=== PATIENT | female | born 1955 | race Caucasian/White ===

== ENCOUNTER → 2018-01-19 | Outpatient (CLI) | payer BC ==
[~2018-01-19] MED LIST: ALBU0.084; ALBU18; BENZ1CAP24 PO; DOXY-216 PO; ESCI20TA51 PO; FLUC200T35 PO; FLUT500M6; IPRASOL39 INH; LINE600T PO; LORA-654 PO; LOS50T PO; LOSA50TA6 PO; MON10T PO; MONT10TA34 PO; NIFE60TA59 PO; PANT40TA2 PO; PREDNISONE 5 MG TABLET PO; SACC250C PO; SERT-135 PO; TUDORZA PRESSAIR 400 MCG; VARE0.5P4; VARE0.5P4 PO
[2018-01-19 11:15] LABS: Basophils # (auto) 0.1 uL; Basophils % (auto) 0.5 % (0.0-2.0); Eosinophils # (auto) 0.5 uL; Eosinophils % (auto) 4.6 % (0.0-7.0); Hematocrit 40.7 % (36.0-46.0); Hemoglobin 13.4 g/dL (12.2-16.2); Lymphocytes # (auto) 2.8 uL; Mean Corpuscular Hemoglobin 28.9 pg (28.0-32.0); Mean Corpuscular Volume 87.5 fL (80.0-100.0); Monocytes # (auto) 0.8 uL; Monocytes % (auto) 7.4 % (0.0-12.0); Neutrophils # (auto) 6.4 uL; Neutrophils % (auto) 60.5 % (37.0-80.0); Platelet Count (auto) 334 10^3/uL (140-450); Red Blood Cells 4.65 10^6/uL (4.0-5.20); Red Cell Distribution Width 14.6 % (11.8-14.3); White Blood Cell 10.5 10^3/uL (4.4-10.8)
[2018-01-19 11:38] LABS: Free T4 (Free Thyroxine) 1.25 ng/dL (0.89-1.76); T3 Total 1.03 ng/mL (0.60-1.81)
[2018-01-19 12:39] LABS: Albumin 4.1 g/dL (3.4-5.0); BUN/Creatinine Ratio 18.8; Bilirubin, Total 0.2 mg/dL (0.2-1.0); Calcium 9.3 mg/dL (8.5-10.1); Potassium 4.1 mmol/L (3.5-5.1); Total Protein 7.2 g/dL (6.4-8.2)
== END | disposition home or self-care (01) ==
LOC: LAB 10:41
PROVIDERS: ATTEND Physician Assistant
DX: I10 Essential (primary) hypertension (principal); J44.9 Chronic obstructive pulmonary disease, unspecified; R94.6 Abnormal results of thyroid function studies; Z83.79 Family history of other diseases of the digestive system
CPT/HCPCS: 36415; 80053; 80061; 82270; 84439; 84443; 84480; 85025

== ENCOUNTER 2018-02-02 05:17 | Inpatient (IN) | payer BC ==
[~2018-02-02] VITALS: Ht 165.1 cm; Wt 59.4 kg
[2018-02-02] VITALS (55 sets, daily range): BP systolic 77–160; BP diastolic 39–77
[~2018-02-02 05:17] MED LIST changes: -BENZ1CAP24 PO; -ESCI20TA51 PO; -FLUC200T35 PO; -LINE600T PO; -LORA-654 PO; -LOSA50TA6 PO; -MONT10TA34 PO; -PANT40TA2 PO; -SACC250C PO; -SERT-135 PO
[2018-02-02] MEDS ORDERED: ETOMIDATE (2MG/ML) 20ML VIAL IV ONE ×2 (05:31→05:45)
[2018-02-02] MEDS ORDERED: SUCCINYLCHOLINE CHLORIDE 20 MG/ML 10ML VIAL IV ONE ×2 (05:31→05:45)
[2018-02-02] MEDS ORDERED: MIDAZOLAM HCL 5 MG/ML-1ML VIAL ONE (05:33)
[2018-02-02] MEDS ORDERED: PROPOFOL 100 ML IV ONE (05:45)
[2018-02-02] MEDS ORDERED: MIDAZOLAM HCL 5 MG/ML-1ML VIAL IV ONE (05:45)
[2018-02-02] MEDS ORDERED: IPRATROPIUM BROM 0.5 MG/2.5ML INH SOL HHN ONE (06:00)
[2018-02-02] MEDS ORDERED: methylPREDNISolone SOD SUCC 125 MG/2 ML VL IV ONE (06:00)
[2018-02-02] MEDS ORDERED: ALBUTEROL SULF 2.5 MG/0.5ML(0.5%) NEB SOLN HHN ONE (06:00)
[2018-02-02 06:21] LABS: Basophils # (auto) 0.1 uL; Basophils % (auto) 0.8 % (0.0-2.0); Eosinophils # (auto) 0 uL; Eosinophils % (auto) 0.4 % (0.0-7.0); Hematocrit 37.6 % (36.0-46.0); Hemoglobin 12.5 g/dL (12.2-16.2); Lymphocytes # (auto) 1.6 uL; Lymphocytes % (auto) 16.5 % (10.0-50.0); Mean Corpuscular Hemoglobin 29.2 pg (28.0-32.0); Mean Corpuscular Hgb Conc. 33.2 g/dL (32.0-36.0); Mean Corpuscular Volume 87.9 fL (80.0-100.0); Monocytes # (auto) 0.9 uL; Monocytes % (auto) 8.9 % (0.0-12.0); Neutrophils % (auto) 73.4 % (37.0-80.0); Nucleated Red Blood Cells % 0.1 %; Platelet Count (auto) 223 10^3/uL (140-450); Red Blood Cells 4.28 10^6/uL (4.0-5.20); Red Cell Distribution Width 15.3 % (11.8-14.3); White Blood Cell 9.5 10^3/uL (4.4-10.8)
[2018-02-02 06:31] LABS: Albumin 3.6 g/dL (3.4-5.0); Anion Gap 7 (5-15); Blood Urea Nitrogen 15 mg/dL (7-18); Carbon Dioxide 30 mmol/L (21-32); Chloride 100 mmol/L (98-107); Glucose 130 mg/dL (74-106); Magnesium 2.2 mg/dL (1.6-2.6); Potassium 4.2 mmol/L (3.5-5.1); Sodium 137 mmol/L (136-145)
[2018-02-02 06:33] LABS: Alanine Aminotransferase 32 U/L (13-56); Aspartate Aminotransferase 36 U/L (15-37); BUN/Creatinine Ratio 25.9; GFR African American 136 mL/min; GFR Non-African American 112 mL/min
[2018-02-02 06:38] LABS: Alkaline Phosphatase 21 U/L (45-117); Bilirubin, Total 0.2 mg/dL (0.2-1.0)
[2018-02-02] MEDS: MIDAZOLAM DRIP 50 mg/50mL 50 ML IV SCH ×3 (06:40→20:35)
[2018-02-02] MEDS ORDERED: MIDAZOLAM DRIP 50 mg/50mL 50 ML IV ONE (06:45)
[2018-02-02] MEDS: PROPOFOL 100 ML IV SCH ×2 (07:11→12:23)
[2018-02-02] MEDS ORDERED: ONDANSETRON HCL 4 MG/2 ML VIAL IV PRN (07:15)
[2018-02-02] MEDS ORDERED: ACETAMINOPHEN 500 MG TAB PO PRN (07:15)
[2018-02-02 07:23] LABS: Urine WBC None Seen /hpf (0 - 5)
[2018-02-02 07:45] LABS: Urine Bacteria FEW /hpf (None Seen); Urine Blood 2+ /uL (Negative); Urine Hyaline Cast MANY /lpf (0 - 2); Urine Mucus FEW (None Seen); Urine Specific Gravity 1.022 (1.001-1.035)
[2018-02-02] MEDS ORDERED: SODIUM BICARBONATE 8.4 % INJ 50ML VIAL IV ONE ×2 (07:45)
[2018-02-02] MEDS: ALBUTEROL SULF 2.5 MG/0.5ML(0.5%) NEB SOLN NEB SCH ×4 (09:30→22:20)
[2018-02-02] MEDS: IPRATROPIUM BROM 0.5 MG/2.5ML INH SOL NEB SCH ×4 (09:30→22:20)
[2018-02-02] MEDS ORDERED: ENOXAPARIN SOD 30 MG/0.3 ML SYRINGE SC SCH (10:00)
[2018-02-02] MEDS ORDERED: ENOXAPARIN SOD 40 MG/0.4 ML SYRINGE SC SCH (10:00)
[2018-02-02] MEDS: PANTOPRAZOLE 40 MG/10 ML VIAL IV SCH (10:28)
[2018-02-02] MEDS ORDERED: fentaNYL Drip 2500mCg/250mlNS 250 ML IV ONE (10:55)
[2018-02-02] MEDS: fentaNYL Drip 2500mCg/250mlNS 250 ML IV SCH (11:00)
[2018-02-02] MEDS ORDERED: SERT-135 PO (11:31)
[2018-02-02] MEDS ORDERED: BENZ1CAP24 PO (11:31)
[2018-02-02] MEDS ORDERED: ESCI20TA51 PO (11:31)
[2018-02-02] MEDS ORDERED: MONT10TA34 PO (11:32)
[2018-02-02] MEDS ORDERED: LOSA50TA6 PO (11:34)
[2018-02-02] MEDS ORDERED: NIFE60TA59 PO (11:34)
[2018-02-02] MEDS ORDERED: NOREPINEPHRINE 8 MG/250ML KIT 250 ML IV ONE (13:35)
[2018-02-02] MEDS: methylPREDNISolone SOD SUCC 40 MG/ML VL IV SCH ×2 (15:08→22:30)
[2018-02-02] MEDS: NOREPINEPHRINE 8 MG/250ML KIT 250 ML IV SCH (16:33)
[2018-02-02] MEDS: DOXYCYCLINE 100MG/250ML 250 ML IV SCH (18:42)
[2018-02-02 20:31] LABS: Calcium 7.7 mg/dL (8.5-10.1)
[2018-02-02] MEDS: SODIUM CHLORIDE 0.9% 1,000 ML IV SCH (21:24)
[2018-02-02] MEDS: BUDESONIDE (INHALATION) 0.5 MG/2 ML NEB NEB SCH (22:20)
[2018-02-03] VITALS (105 sets, daily range): BP systolic 77–151; BP diastolic 32–75
[2018-02-03] MEDS: MIDAZOLAM DRIP 50 mg/50mL 50 ML IV SCH ×4 (00:39→20:50)
[2018-02-03] MEDS: Nutren Pulmonary 1 Liter GT SCH (02:13)
[2018-02-03] MEDS: ALBUTEROL SULF 2.5 MG/0.5ML(0.5%) NEB SOLN NEB SCH ×6 (02:42→22:05)
[2018-02-03] MEDS: IPRATROPIUM BROM 0.5 MG/2.5ML INH SOL NEB SCH ×6 (02:43→22:05)
[2018-02-03 04:19] LABS: Basophils # (auto) 0 uL; Basophils % (auto) 0.1 % (0.0-2.0); Eosinophils # (auto) 0 uL; Hematocrit 34.4 % (36.0-46.0); Hemoglobin 11.4 g/dL (12.2-16.2); Lymphocytes # (auto) 0.7 uL; Lymphocytes % (auto) 8.7 % (10.0-50.0); Mean Corpuscular Hemoglobin 28.9 pg (28.0-32.0); Mean Corpuscular Hgb Conc. 33.3 g/dL (32.0-36.0); Mean Corpuscular Volume 86.8 fL (80.0-100.0); Monocytes # (auto) 0.5 uL; Monocytes % (auto) 5.9 % (0.0-12.0); Neutrophils # (auto) 7.1 uL; Neutrophils % (auto) 85.3 % (37.0-80.0); Platelet Count (auto) 199 10^3/uL (140-450); Red Blood Cells 3.96 10^6/uL (4.0-5.20); Red Cell Distribution Width 15.2 % (11.8-14.3); White Blood Cell 8.3 10^3/uL (4.4-10.8)
[2018-02-03 04:35] LABS: BUN/Creatinine Ratio 29.1; Magnesium 2.4 mg/dL (1.6-2.6); Potassium 3.9 mmol/L (3.5-5.1)
[2018-02-03] MEDS: PROPOFOL 100 ML IV SCH ×3 (05:04→23:36)
[2018-02-03] MEDS: methylPREDNISolone SOD SUCC 40 MG/ML VL IV SCH ×3 (06:09→18:13)
[2018-02-03] MEDS: fentaNYL Drip 2500mCg/250mlNS 250 ML IV SCH ×2 (06:30→18:20)
[2018-02-03] MEDS: DOXYCYCLINE 100MG/250ML 250 ML IV SCH ×2 (06:30→18:13)
[2018-02-03] MEDS: PANTOPRAZOLE 40 MG/10 ML VIAL IV SCH (09:41)
[2018-02-03] MEDS ORDERED: methylPREDNISolone SOD SUCC 125 MG/2 ML VL IV ONE (10:00)
[2018-02-03] MEDS: BUDESONIDE (INHALATION) 0.5 MG/2 ML NEB NEB SCH ×2 (10:15→22:05)
[2018-02-03 10:38] LABS: Hemoglobin 11.6 g/dL (12.2-16.2)
[2018-02-03] MEDS ORDERED: ACETYLCYSTEINE 10 %(100MG/ML) SOL 4ML NEB ONE ×2 (10:55→12:00)
[2018-02-03] MEDS ORDERED: MAGNESIUM SULFATE 1GM/100ML 100 ML IV ONE ×2 (11:24→11:30)
[2018-02-03] MEDS ORDERED: ALBUTEROL SULF 2.5 MG/0.5ML(0.5%) NEB SOLN ONE (11:25)
[2018-02-03] MEDS ORDERED: ALBUTEROL SULF 2.5 MG/0.5ML(0.5%) NEB SOLN NEB ONE (11:30)
[2018-02-03] MEDS: NOREPINEPHRINE 8 MG/250ML KIT 250 ML IV SCH (13:41)
[2018-02-03 14:43] LABS: Hematocrit 35.8 % (36.0-46.0); Hemoglobin 11.6 g/dL (12.2-16.2)
[2018-02-03] MEDS: SODIUM CHLORIDE 0.9% 1,000 ML IV SCH (18:12)
[2018-02-04] VITALS (105 sets, daily range): BP systolic 88–131; BP diastolic 39–68
[2018-02-04] MEDS: methylPREDNISolone SOD SUCC 40 MG/ML VL IV SCH ×4 (00:08→18:40)
[2018-02-04] MEDS: MIDAZOLAM DRIP 50 mg/50mL 50 ML IV SCH ×6 (01:13→20:24)
[2018-02-04] MEDS: IPRATROPIUM BROM 0.5 MG/2.5ML INH SOL NEB SCH ×6 (02:14→21:55)
[2018-02-04] MEDS: ALBUTEROL SULF 2.5 MG/0.5ML(0.5%) NEB SOLN NEB SCH ×6 (02:14→21:55)
[2018-02-04] MEDS: Nutren Pulmonary 1 Liter GT SCH (04:05)
[2018-02-04 04:25] LABS: Basophils # (auto) 0 uL; Basophils % (auto) 0.1 % (0.0-2.0); Eosinophils # (auto) 0 uL; Hemoglobin 10.6 g/dL (12.2-16.2); Lymphocytes # (auto) 0.6 uL; Lymphocytes % (auto) 5.7 % (10.0-50.0); Mean Corpuscular Hemoglobin 28.9 pg (28.0-32.0); Mean Corpuscular Volume 87.3 fL (80.0-100.0); Monocytes # (auto) 0.6 uL; Monocytes % (auto) 5.1 % (0.0-12.0); Neutrophils # (auto) 10.1 uL; Neutrophils % (auto) 89.1 % (37.0-80.0); Platelet Count (auto) 188 10^3/uL (140-450); Red Blood Cells 3.66 10^6/uL (4.0-5.20); Red Cell Distribution Width 15.5 % (11.8-14.3); White Blood Cell 11.4 10^3/uL (4.4-10.8)
[2018-02-04 04:38] LABS: BUN/Creatinine Ratio 26.9; Calcium 8.1 mg/dL (8.5-10.1)
[2018-02-04] MEDS: PROPOFOL 100 ML IV SCH ×3 (04:54→16:24)
[2018-02-04] MEDS: fentaNYL Drip 2500mCg/250mlNS 250 ML IV SCH ×2 (05:44→17:43)
[2018-02-04] MEDS: BUDESONIDE (INHALATION) 0.5 MG/2 ML NEB NEB SCH ×2 (06:12→21:55)
[2018-02-04] MEDS ORDERED: ALBUTEROL SULF 2.5 MG/0.5ML(0.5%) NEB SOLN NEB ONE ×2 (06:30→15:45)
[2018-02-04] MEDS: DOXYCYCLINE 100MG/250ML 250 ML IV SCH ×2 (07:02→19:23)
[2018-02-04] MEDS: PANTOPRAZOLE 40 MG/10 ML VIAL IV SCH (09:49)
[2018-02-04] MEDS ORDERED: DEXTROSE (50%) 50ML SYRG IV PRN (10:30)
[2018-02-04] MEDS: SODIUM CHLORIDE 0.9% 1,000 ML IV SCH ×2 (11:45→18:00)
[2018-02-04] MEDS: InsuLIN REG 1unit/0.01ml Soln (100units/ml) SC SCH ×2 (11:49→18:00)
[2018-02-04] MEDS: ACCU-CHEK COMFORT CURVE STRIP VI SCH ×2 (11:49→18:00)
[2018-02-04] MEDS: NOREPINEPHRINE 8 MG/250ML KIT 250 ML IV SCH (13:18)
[2018-02-04] MEDS ORDERED: ATRACURIUM BESYLATE 1,000 MG in D5W 5% 150 ML IV SCH (16:45)
[2018-02-05] VITALS (104 sets, daily range): BP systolic 90–148; BP diastolic 43–78
[2018-02-05] MEDS: methylPREDNISolone SOD SUCC 40 MG/ML VL IV SCH ×4 (00:24→22:10)
[2018-02-05] MEDS: ACCU-CHEK COMFORT CURVE STRIP VI SCH ×4 (00:24→17:39)
[2018-02-05] MEDS: InsuLIN REG 1unit/0.01ml Soln (100units/ml) SC SCH ×4 (00:24→17:39)
[2018-02-05] MEDS: MIDAZOLAM DRIP 50 mg/50mL 50 ML IV SCH ×4 (01:22→18:39)
[2018-02-05] MEDS: ALBUTEROL SULF 2.5 MG/0.5ML(0.5%) NEB SOLN NEB SCH ×6 (02:04→22:08)
[2018-02-05] MEDS: IPRATROPIUM BROM 0.5 MG/2.5ML INH SOL NEB SCH ×6 (02:04→22:08)
[2018-02-05 04:08] LABS: Basophils # (auto) 0 uL; Basophils % (auto) 0.1 % (0.0-2.0); Eosinophils # (auto) 0 uL; Hematocrit 31.3 % (36.0-46.0); Hemoglobin 10.3 g/dL (12.2-16.2); Lymphocytes # (auto) 0.6 uL; Lymphocytes % (auto) 3.5 % (10.0-50.0); Mean Corpuscular Hemoglobin 28.8 pg (28.0-32.0); Mean Corpuscular Volume 87.2 fL (80.0-100.0); Monocytes # (auto) 0.9 uL; Monocytes % (auto) 5.5 % (0.0-12.0); Neutrophils # (auto) 15.6 uL; Neutrophils % (auto) 90.9 % (37.0-80.0); Platelet Count (auto) 186 10^3/uL (140-450); Red Blood Cells 3.59 10^6/uL (4.0-5.20); Red Cell Distribution Width 15.6 % (11.8-14.3); White Blood Cell 17.1 10^3/uL (4.4-10.8)
[2018-02-05 04:24] LABS: Calcium 8.2 mg/dL (8.5-10.1); Chloride 108 mmol/L (98-107); Potassium 4.2 mmol/L (3.5-5.1); Sodium 144 mmol/L (136-145)
[2018-02-05 04:28] LABS: Anion Gap 6 (5-15); Blood Urea Nitrogen 17 mg/dL (7-18); Carbon Dioxide 30 mmol/L (21-32); GFR African American 161 mL/min; GFR Non-African American 133 mL/min; Glucose 142 mg/dL (74-106)
[2018-02-05] MEDS: DOXYCYCLINE 100MG/250ML 250 ML IV SCH ×2 (06:35→18:38)
[2018-02-05 07:48] LABS: % Iron Saturation 18.1 % (15-50)
[2018-02-05] MEDS: PROPOFOL 100 ML IV SCH ×4 (07:49→22:04)
[2018-02-05] MEDS ORDERED: BUDESONIDE (INHALATION) 0.5 MG/2 ML NEB ONE (09:26)
[2018-02-05] MEDS: BUDESONIDE (INHALATION) 0.5 MG/2 ML NEB NEB SCH ×2 (09:39→22:08)
[2018-02-05] MEDS: PANTOPRAZOLE 40 MG/10 ML VIAL IV SCH (10:15)
[2018-02-05] MEDS ORDERED: ALBUTEROL SULF 2.5 MG/0.5ML(0.5%) NEB SOLN NEB ONE (16:30)
[2018-02-05] MEDS: ATRACURIUM BESYLATE 1,000 MG in D5W 5% 150 ML IV PRN (16:38)
[2018-02-05] MEDS ORDERED: methylPREDNISolone SOD SUCC 125 MG/2 ML VL ONE (17:04)
[2018-02-05] MEDS: SODIUM CHLORIDE 0.9% 1,000 ML IV SCH (17:09)
[2018-02-05] MEDS ORDERED: methylPREDNISolone SOD SUCC 125 MG/2 ML VL IV ONE (17:15)
[2018-02-05] MEDS: NOREPINEPHRINE 8 MG/250ML KIT 250 ML IV SCH (22:09)
[2018-02-06] VITALS (103 sets, daily range): BP systolic 92–179; BP diastolic 59–87
[2018-02-06] MEDS: ACCU-CHEK COMFORT CURVE STRIP VI SCH ×4 (00:01→17:49)
[2018-02-06] MEDS: MIDAZOLAM DRIP 50 mg/50mL 50 ML IV SCH ×4 (00:01→20:22)
[2018-02-06] MEDS: InsuLIN REG 1unit/0.01ml Soln (100units/ml) SC SCH ×4 (00:02→17:49)
[2018-02-06] MEDS: IPRATROPIUM BROM 0.5 MG/2.5ML INH SOL NEB SCH ×6 (02:49→22:13)
[2018-02-06] MEDS: ALBUTEROL SULF 2.5 MG/0.5ML(0.5%) NEB SOLN NEB SCH ×6 (02:49→22:13)
[2018-02-06] MEDS: PROPOFOL 100 ML IV SCH ×3 (03:06→22:17)
[2018-02-06 03:35] LABS: Basophils # (auto) 0.1 uL; Basophils % (auto) 0.3 % (0.0-2.0); Eosinophils # (auto) 0 uL; Hematocrit 32.4 % (36.0-46.0); Hemoglobin 10.4 g/dL (12.2-16.2); Lymphocytes # (auto) 1.4 uL; Mean Corpuscular Hemoglobin 28.5 pg (28.0-32.0); Mean Corpuscular Hgb Conc. 32.2 g/dL (32.0-36.0); Mean Corpuscular Volume 88.5 fL (80.0-100.0); Monocytes # (auto) 0.8 uL; Monocytes % (auto) 4.6 % (0.0-12.0); Neutrophils # (auto) 14.7 uL; Neutrophils % (auto) 87.1 % (37.0-80.0); Nucleated Red Blood Cells % 0.1 %; Platelet Count (auto) 169 10^3/uL (140-450); Red Blood Cells 3.66 10^6/uL (4.0-5.20); Red Cell Distribution Width 16.1 % (11.8-14.3); White Blood Cell 16.9 10^3/uL (4.4-10.8)
[2018-02-06 03:59] LABS: BUN/Creatinine Ratio 57.4; Calcium 8.7 mg/dL (8.5-10.1); Magnesium 2.7 mg/dL (1.6-2.6)
[2018-02-06] MEDS: methylPREDNISolone SOD SUCC 40 MG/ML VL IV SCH ×2 (06:13→17:49)
[2018-02-06] MEDS: DOXYCYCLINE 100MG/250ML 250 ML IV SCH (07:25)
[2018-02-06] MEDS ORDERED: PIPERACILLIN-TAZOB 3.375GM 100 ML IV SCH (10:00)
[2018-02-06] MEDS: BUDESONIDE (INHALATION) 0.5 MG/2 ML NEB NEB SCH ×2 (10:02→22:13)
[2018-02-06] MEDS: PANTOPRAZOLE 40 MG/10 ML VIAL IV SCH (10:29)
[2018-02-06] MEDS: fentaNYL Drip 2500mCg/250mlNS 250 ML IV SCH (11:00)
[2018-02-06] MEDS ORDERED: Nutren Pulmonary 1 Liter GT SCH (11:30)
[2018-02-06] MEDS: SODIUM CHLORIDE 0.9% 1,000 ML IV SCH (23:45)
[2018-02-07] VITALS (105 sets, daily range): BP systolic 84–198; BP diastolic 49–91
[2018-02-07] MEDS: ACCU-CHEK COMFORT CURVE STRIP VI SCH ×4 (00:25→18:02)
[2018-02-07] MEDS: methylPREDNISolone SOD SUCC 40 MG/ML VL IV SCH ×4 (00:25→18:00)
[2018-02-07] MEDS: MIDAZOLAM DRIP 50 mg/50mL 50 ML IV SCH ×6 (00:46→21:44)
[2018-02-07] MEDS: PROPOFOL 100 ML IV SCH ×4 (01:05→15:14)
[2018-02-07] MEDS: ALBUTEROL SULF 2.5 MG/0.5ML(0.5%) NEB SOLN NEB SCH ×6 (02:10→22:10)
[2018-02-07] MEDS: IPRATROPIUM BROM 0.5 MG/2.5ML INH SOL NEB SCH ×6 (02:10→22:10)
[2018-02-07 03:40] LABS: Hematocrit 33.2 % (36.0-46.0); Hemoglobin 10.9 g/dL (12.2-16.2); Mean Corpuscular Hemoglobin 28.5 pg (28.0-32.0); Mean Corpuscular Hgb Conc. 32.8 g/dL (32.0-36.0); Mean Corpuscular Volume 86.9 fL (80.0-100.0); Platelet Count (auto) 196 10^3/uL (140-450); Red Blood Cells 3.82 10^6/uL (4.0-5.20); Red Cell Distribution Width 15.7 % (11.8-14.3); White Blood Cell 12.1 10^3/uL (4.4-10.8)
[2018-02-07 03:43] LABS: Basophils % (manual) 0 (0.0-2.0); Blast Cells 0; Eosinophils % (manual) 0 (0-7); Metamyelocytes % 0; Myelocytes % 0; Promyelocytes % 0; Reactive Lymphocytes 0
[2018-02-07 04:31] LABS: Band Neutrophils % (manual) 2; Lymphocytes % (manual) 7 (10.0-50.0); Monocytes % (manual) 5 (0-12)
[2018-02-07] MEDS: InsuLIN REG 1unit/0.01ml Soln (100units/ml) SC SCH ×4 (06:00→18:30)
[2018-02-07] MEDS ORDERED: ceFAZolin 1GM/50ML 50 ML IV ONE (07:49)
[2018-02-07 08:26] LABS: Calcium 8.2 mg/dL (8.5-10.1); Potassium 4.7 mmol/L (3.5-5.1)
[2018-02-07] MEDS: ATRACURIUM BESYLATE 1,000 MG in D5W 5% 150 ML IV PRN (09:15)
[2018-02-07] MEDS: PANTOPRAZOLE 40 MG/10 ML VIAL IV SCH (10:00)
[2018-02-07] MEDS: ENOXAPARIN SOD 40 MG/0.4 ML SYRINGE SC SCH (10:00)
[2018-02-07] MEDS: BUDESONIDE (INHALATION) 0.5 MG/2 ML NEB NEB SCH ×2 (10:11→22:10)
[2018-02-07] MEDS ORDERED: NIFEdipine ER 30 MG TAB PO ONE (12:30)
[2018-02-07] MEDS: SODIUM CHLORIDE 0.9% 1,000 ML IV SCH (17:25)
[2018-02-07] MEDS: fentaNYL Drip 2500mCg/250mlNS 250 ML IV SCH (17:26)
[2018-02-08] VITALS (104 sets, daily range): BP systolic 89–185; BP diastolic 49–96
[2018-02-08] MEDS: methylPREDNISolone SOD SUCC 40 MG/ML VL IV SCH ×5 (00:08→23:50)
[2018-02-08] MEDS: ACCU-CHEK COMFORT CURVE STRIP VI SCH ×5 (00:13→23:51)
[2018-02-08] MEDS: PROPOFOL 100 ML IV SCH ×4 (01:54→20:01)
[2018-02-08] MEDS: MIDAZOLAM DRIP 50 mg/50mL 50 ML IV SCH ×5 (01:54→20:01)
[2018-02-08] MEDS: ALBUTEROL SULF 2.5 MG/0.5ML(0.5%) NEB SOLN NEB SCH ×6 (02:22→22:10)
[2018-02-08] MEDS: IPRATROPIUM BROM 0.5 MG/2.5ML INH SOL NEB SCH ×6 (02:22→22:10)
[2018-02-08 03:47] LABS: Hematocrit 33.2 % (36.0-46.0); Hemoglobin 11.2 g/dL (12.2-16.2); Mean Corpuscular Hemoglobin 29.1 pg (28.0-32.0); Mean Corpuscular Hgb Conc. 33.6 g/dL (32.0-36.0); Mean Corpuscular Volume 86.4 fL (80.0-100.0); Platelet Count (auto) 203 10^3/uL (140-450); Red Blood Cells 3.84 10^6/uL (4.0-5.20); Red Cell Distribution Width 15.8 % (11.8-14.3)
[2018-02-08 03:49] LABS: Basophils % (manual) 0 (0.0-2.0); Blast Cells 0; Eosinophils % (manual) 0 (0-7); Metamyelocytes % 0; Myelocytes % 0; Promyelocytes % 0; Reactive Lymphocytes 0
[2018-02-08 04:54] LABS: Band Neutrophils % (manual) 2; Lymphocytes % (manual) 8 (10.0-50.0); Monocytes % (manual) 4 (0-12)
[2018-02-08] MEDS: InsuLIN REG 1unit/0.01ml Soln (100units/ml) SC SCH ×5 (06:00→23:51)
[2018-02-08] MEDS ORDERED: NIFEdipine ER 30 MG TAB PO SCH (10:00)
[2018-02-08] MEDS: BUDESONIDE (INHALATION) 0.5 MG/2 ML NEB NEB SCH ×2 (10:20→22:10)
[2018-02-08] MEDS: PANTOPRAZOLE 40 MG/10 ML VIAL IV SCH (10:50)
[2018-02-08] MEDS: ENOXAPARIN SOD 40 MG/0.4 ML SYRINGE SC SCH (10:51)
[2018-02-08] MEDS: fentaNYL Drip 2500mCg/250mlNS 250 ML IV SCH (10:56)
[2018-02-08 12:41] LABS: INR 1.05 (0.9-1.15); Prothrombin Time 11.2 sec (9.27-12.13)
[2018-02-08] MEDS ORDERED: LIDOCAINE 1% (LOCAL ANESTH.) PF 5ml SDV ID ONE (14:30)
[2018-02-08] MEDS: SODIUM CHLORIDE 0.9% 1,000 ML IV SCH (17:28)
[2018-02-08] MEDS: SODIUM CHLOR 0.9% PF (SALINE LOCK) 10ML VIAL/SYR IV SCH (22:12)
[2018-02-09] VITALS (104 sets, daily range): BP systolic 113–192; BP diastolic 53–87
[2018-02-09] MEDS: fentaNYL Drip 2500mCg/250mlNS 250 ML IV SCH (01:16)
[2018-02-09] MEDS: MIDAZOLAM DRIP 50 mg/50mL 50 ML IV SCH ×3 (01:42→19:54)
[2018-02-09] MEDS: ALBUTEROL SULF 2.5 MG/0.5ML(0.5%) NEB SOLN NEB SCH ×6 (02:29→22:34)
[2018-02-09] MEDS: IPRATROPIUM BROM 0.5 MG/2.5ML INH SOL NEB SCH ×6 (02:29→22:34)
[2018-02-09 03:42] LABS: Hematocrit 32.7 % (36.0-46.0); Hemoglobin 10.8 g/dL (12.2-16.2); Mean Corpuscular Hemoglobin 28.5 pg (28.0-32.0); Mean Corpuscular Volume 86.2 fL (80.0-100.0); Platelet Count (auto) 197 10^3/uL (140-450); Red Blood Cells 3.79 10^6/uL (4.0-5.20); Red Cell Distribution Width 15.8 % (11.8-14.3); White Blood Cell 13.5 10^3/uL (4.4-10.8)
[2018-02-09 03:46] LABS: Band Neutrophils % (manual) 0; Basophils % (manual) 0 (0.0-2.0); Blast Cells 0; Eosinophils % (manual) 0 (0-7); Metamyelocytes % 0; Myelocytes % 0; Promyelocytes % 0; Reactive Lymphocytes 0
[2018-02-09 03:59] LABS: Potassium 4.5 mmol/L (3.5-5.1)
[2018-02-09 04:03] LABS: Magnesium 2.6 mg/dL (1.6-2.6)
[2018-02-09 04:18] LABS: Lymphocytes % (manual) 5 (10.0-50.0); Monocytes % (manual) 4 (0-12)
[2018-02-09] MEDS: InsuLIN REG 1unit/0.01ml Soln (100units/ml) SC SCH ×3 (06:00→18:00)
[2018-02-09] MEDS: BUDESONIDE (INHALATION) 0.5 MG/2 ML NEB NEB SCH ×2 (06:12→22:34)
[2018-02-09] MEDS: methylPREDNISolone SOD SUCC 40 MG/ML VL IV SCH ×3 (06:23→19:57)
[2018-02-09] MEDS: ACCU-CHEK COMFORT CURVE STRIP VI SCH ×3 (06:23→18:00)
[2018-02-09] MEDS: NIFEdipine ER 30 MG TAB PO SCH ×2 (10:00→11:18)
[2018-02-09] MEDS: PANTOPRAZOLE 40 MG/10 ML VIAL IV SCH (11:17)
[2018-02-09] MEDS: ENOXAPARIN SOD 40 MG/0.4 ML SYRINGE SC SCH (11:17)
[2018-02-09] MEDS: SODIUM CHLOR 0.9% PF (SALINE LOCK) 10ML VIAL/SYR IV SCH ×2 (11:19→22:01)
[2018-02-09] MEDS: PROPOFOL 100 ML IV SCH ×2 (11:30→11:50)
[2018-02-09] MEDS: SODIUM CHLORIDE 0.9% 1,000 ML IV SCH (11:45)
[2018-02-09] MEDS ORDERED: hydrALAZINE HCL 20 MG/ML VL IV PRN (23:00)
[2018-02-09] MEDS ORDERED: NIFEdipine 10 MG CAP ONE (23:37)
[2018-02-09] MEDS: NIFEdipine 10 MG CAP PO SCH (23:48)
[2018-02-10] VITALS (105 sets, daily range): BP systolic 94–191; BP diastolic 53–109
[2018-02-10] MEDS: IPRATROPIUM BROM 0.5 MG/2.5ML INH SOL NEB SCH ×5 (02:40→22:17)
[2018-02-10] MEDS: ALBUTEROL SULF 2.5 MG/0.5ML(0.5%) NEB SOLN NEB SCH ×5 (02:40→22:17)
[2018-02-10 03:57] LABS: Hematocrit 33.3 % (36.0-46.0); Hemoglobin 11.2 g/dL (12.2-16.2); Mean Corpuscular Hemoglobin 28.8 pg (28.0-32.0); Mean Corpuscular Hgb Conc. 33.5 g/dL (32.0-36.0); Platelet Count (auto) 222 10^3/uL (140-450); Red Blood Cells 3.88 10^6/uL (4.0-5.20); Red Cell Distribution Width 15.7 % (11.8-14.3); White Blood Cell 15.2 10^3/uL (4.4-10.8)
[2018-02-10 04:09] LABS: Basophils % (manual) 0 (0.0-2.0); Blast Cells 0; Eosinophils % (manual) 0 (0-7); Promyelocytes % 0; Reactive Lymphocytes 0
[2018-02-10 04:16] LABS: Potassium 4.1 mmol/L (3.5-5.1)
[2018-02-10 04:21] LABS: Albumin 2.7 g/dL (3.4-5.0); BUN/Creatinine Ratio 70.7; Calcium 7.8 mg/dL (8.5-10.1)
[2018-02-10] MEDS: PROPOFOL 100 ML IV SCH ×3 (04:22→18:52)
[2018-02-10] MEDS: MIDAZOLAM DRIP 50 mg/50mL 50 ML IV SCH ×3 (04:22→22:43)
[2018-02-10 04:24] LABS: Total Protein 5.4 g/dL (6.4-8.2)
[2018-02-10 05:27] LABS: Band Neutrophils % (manual) 1; Lymphocytes % (manual) 4 (10.0-50.0); Metamyelocytes % 1; Monocytes % (manual) 4 (0-12); Myelocytes % 2
[2018-02-10] MEDS: BUDESONIDE (INHALATION) 0.5 MG/2 ML NEB NEB SCH ×2 (05:51→22:17)
[2018-02-10] MEDS: InsuLIN REG 1unit/0.01ml Soln (100units/ml) SC SCH ×4 (06:00→18:00)
[2018-02-10] MEDS: methylPREDNISolone SOD SUCC 40 MG/ML VL IV SCH ×4 (06:12→18:00)
[2018-02-10] MEDS: ACCU-CHEK COMFORT CURVE STRIP VI SCH ×4 (06:12→18:00)
[2018-02-10] MEDS: NIFEdipine 10 MG CAP PO SCH ×3 (06:35→22:00)
[2018-02-10] MEDS: fentaNYL Drip 2500mCg/250mlNS 250 ML IV SCH (09:48)
[2018-02-10] MEDS: ENOXAPARIN SOD 40 MG/0.4 ML SYRINGE SC SCH (10:33)
[2018-02-10] MEDS: SODIUM CHLOR 0.9% PF (SALINE LOCK) 10ML VIAL/SYR IV SCH ×2 (10:34→22:00)
[2018-02-10] MEDS: PANTOPRAZOLE 40 MG/10 ML VIAL IV SCH (10:34)
[2018-02-10] MEDS ORDERED: ACETAMINOPHEN 650 mg PER 20 mL UD ONE (10:40)
[2018-02-10] MEDS: SODIUM CHLORIDE 0.9% 1,000 ML IV SCH (12:00)
[2018-02-10] MEDS: PIPERACILLIN-TAZOB 3.375GM 100 ML IV SCH ×2 (12:52→18:51)
[2018-02-10] MEDS: VANCOMYCIN 1GM/250ML 250 ML IV SCH (16:30)
[2018-02-11] VITALS (103 sets, daily range): BP systolic 101–196; BP diastolic 61–98
[2018-02-11] MEDS: PROPOFOL 100 ML IV SCH (00:16)
[2018-02-11] MEDS: ALBUTEROL SULF 2.5 MG/0.5ML(0.5%) NEB SOLN NEB SCH ×6 (02:12→22:14)
[2018-02-11] MEDS: IPRATROPIUM BROM 0.5 MG/2.5ML INH SOL NEB SCH ×6 (02:12→22:15)
[2018-02-11] MEDS: VANCOMYCIN 1GM/250ML 250 ML IV SCH ×2 (03:00→15:23)
[2018-02-11] MEDS: SODIUM CHLORIDE 0.9% 1,000 ML IV SCH ×2 (03:45→23:45)
[2018-02-11 05:08] LABS: Hematocrit 33.7 % (36.0-46.0); Hemoglobin 11.2 g/dL (12.2-16.2); Mean Corpuscular Hemoglobin 28.5 pg (28.0-32.0); Mean Corpuscular Hgb Conc. 33.3 g/dL (32.0-36.0); Mean Corpuscular Volume 85.5 fL (80.0-100.0); Platelet Count (auto) 236 10^3/uL (140-450); Red Blood Cells 3.94 10^6/uL (4.0-5.20); Red Cell Distribution Width 15.7 % (11.8-14.3); White Blood Cell 18.5 10^3/uL (4.4-10.8)
[2018-02-11 05:10] LABS: Basophils % (manual) 0 (0.0-2.0); Blast Cells 0; Metamyelocytes % 0; Promyelocytes % 0; Reactive Lymphocytes 0
[2018-02-11 05:24] LABS: Albumin 2.7 g/dL (3.4-5.0); Bilirubin, Total 1.1 mg/dL (0.2-1.0); Calcium 7.8 mg/dL (8.5-10.1); Potassium 3.6 mmol/L (3.5-5.1); Total Protein 5.3 g/dL (6.4-8.2)
[2018-02-11] MEDS: methylPREDNISolone SOD SUCC 40 MG/ML VL IV SCH ×4 (06:00→18:00)
[2018-02-11] MEDS: PIPERACILLIN-TAZOB 3.375GM 100 ML IV SCH ×4 (06:00→18:00)
[2018-02-11] MEDS: NIFEdipine 10 MG CAP PO SCH ×3 (06:00→22:48)
[2018-02-11] MEDS: InsuLIN REG 1unit/0.01ml Soln (100units/ml) SC SCH ×4 (06:00→18:00)
[2018-02-11] MEDS: ACCU-CHEK COMFORT CURVE STRIP VI SCH ×4 (06:00→18:00)
[2018-02-11] MEDS ORDERED: PHENYLEPHRINE IV 250 ML IV ONE (06:02)
[2018-02-11] MEDS ORDERED: PHENYLEPHRINE HCL 10 MG/ML VL ONE (06:02)
[2018-02-11 06:47] LABS: Eosinophils % (manual) 2 (0-7); Lymphocytes % (manual) 2 (10.0-50.0); Monocytes % (manual) 2 (0-12); Myelocytes % 1
[2018-02-11] MEDS: METOPROLOL TARTRATE 1MG/1ML-5ML VIAL IV PRN (08:51)
[2018-02-11] MEDS: PANTOPRAZOLE 40 MG/10 ML VIAL IV SCH (10:00)
[2018-02-11] MEDS: ENOXAPARIN SOD 40 MG/0.4 ML SYRINGE SC SCH (10:00)
[2018-02-11] MEDS: SODIUM CHLOR 0.9% PF (SALINE LOCK) 10ML VIAL/SYR IV SCH ×2 (10:00→22:00)
[2018-02-11] MEDS: BUDESONIDE (INHALATION) 0.5 MG/2 ML NEB NEB SCH ×2 (10:22→22:15)
[2018-02-11] MEDS: ACETAMINOPHEN 650 mg PER 20 mL UD GT PRN (10:33)
[2018-02-11] MEDS: MIDAZOLAM DRIP 50 mg/50mL 50 ML IV SCH ×3 (10:34→21:00)
[2018-02-11] MEDS ORDERED: VITAMINS A & D (TOPICAL) OINT 5GM TOP ONE (10:45)
[2018-02-11] MEDS: fentaNYL Drip 2500mCg/250mlNS 250 ML IV SCH ×2 (11:00→15:18)
[2018-02-11] MEDS ORDERED: METOPROLOL TARTRATE 1MG/1ML-5ML VIAL IV ONE (15:12)
[2018-02-11] MEDS ORDERED: VANCOMYCIN PER PHARMACY 0 MG IV SCH (18:15)
[2018-02-12] VITALS (100 sets, daily range): BP systolic 83–186; BP diastolic 8–101
[2018-02-12] MEDS: MIDAZOLAM DRIP 50 mg/50mL 50 ML IV SCH ×3 (01:15→17:23)
[2018-02-12] MEDS: ALBUTEROL SULF 2.5 MG/0.5ML(0.5%) NEB SOLN NEB SCH ×5 (01:38→14:23)
[2018-02-12] MEDS: IPRATROPIUM BROM 0.5 MG/2.5ML INH SOL NEB SCH ×6 (01:38→22:17)
[2018-02-12] MEDS: fentaNYL Drip 2500mCg/250mlNS 250 ML IV SCH ×3 (02:23→23:09)
[2018-02-12 02:44] LABS: Hematocrit 39.9 % (36.0-46.0); Hemoglobin 13.1 g/dL (12.2-16.2); Mean Corpuscular Hemoglobin 28.1 pg (28.0-32.0); Mean Corpuscular Hgb Conc. 32.7 g/dL (32.0-36.0); Platelet Count (auto) 284 10^3/uL (140-450); Red Blood Cells 4.64 10^6/uL (4.0-5.20); Red Cell Distribution Width 15.8 % (11.8-14.3); White Blood Cell 25.7 10^3/uL (4.4-10.8)
[2018-02-12 02:55] LABS: Basophils % (manual) 0 (0.0-2.0); Blast Cells 0; Eosinophils % (manual) 0 (0-7); Metamyelocytes % 0; Myelocytes % 0; Promyelocytes % 0; Reactive Lymphocytes 0
[2018-02-12] MEDS: VANCOMYCIN 1GM/250ML 250 ML IV SCH ×2 (03:00→14:39)
[2018-02-12 03:21] LABS: Calcium 7.8 mg/dL (8.5-10.1)
[2018-02-12 03:25] LABS: BUN/Creatinine Ratio 47.4
[2018-02-12 03:27] LABS: Bilirubin, Total 1.1 mg/dL (0.2-1.0); Total Protein 5.9 g/dL (6.4-8.2)
[2018-02-12 03:43] LABS: Band Neutrophils % (manual) 2
[2018-02-12 03:44] LABS: Lymphocytes % (manual) 6 (10.0-50.0); Monocytes % (manual) 2 (0-12)
[2018-02-12] MEDS: PIPERACILLIN-TAZOB 3.375GM 100 ML IV SCH ×5 (05:49→23:52)
[2018-02-12] MEDS: NIFEdipine 10 MG CAP PO SCH ×3 (06:00→21:21)
[2018-02-12] MEDS: methylPREDNISolone SOD SUCC 40 MG/ML VL IV SCH ×5 (06:13→23:52)
[2018-02-12] MEDS: ACCU-CHEK COMFORT CURVE STRIP VI SCH ×5 (06:14→23:52)
[2018-02-12] MEDS: InsuLIN REG 1unit/0.01ml Soln (100units/ml) SC SCH ×5 (06:14→23:53)
[2018-02-12] MEDS: PANTOPRAZOLE 40 MG/10 ML VIAL IV SCH (10:10)
[2018-02-12] MEDS: SODIUM CHLOR 0.9% PF (SALINE LOCK) 10ML VIAL/SYR IV SCH ×2 (10:10→21:22)
[2018-02-12] MEDS: ENOXAPARIN SOD 40 MG/0.4 ML SYRINGE SC SCH (10:10)
[2018-02-12] MEDS: BUDESONIDE (INHALATION) 0.5 MG/2 ML NEB NEB SCH ×2 (10:12→22:17)
[2018-02-12] MEDS ORDERED: Nutren Pulmonary 1 Liter GT SCH (10:30)
[2018-02-12] MEDS ORDERED: DOCUSATE SOD 100 MG CAP PO ONE (10:48)
[2018-02-12] MEDS: METOPROLOL TARTRATE 1MG/1ML-5ML VIAL IV PRN (11:48)
[2018-02-12] MEDS ORDERED: XOPENEX IN PRN (15:00)
[2018-02-12] MEDS: METOPROLOL TARTRATE 25 MG TAB PO SCH ×3 (15:13→22:00)
[2018-02-12] MEDS ORDERED: LEVALBUTEROL HCL 1.25 MG/3 ML NEB NEB PRN (15:15)
[2018-02-12] MEDS: ACETAMINOPHEN 650 mg PER 20 mL UD GT PRN ×2 (16:36→23:54)
[2018-02-12] MEDS ORDERED: MIDAZOLAM DRIP 50 mg/50mL 50 ML IV ONE (17:17)
[2018-02-12] MEDS: LEVALBUTEROL HCL 1.25 MG/3 ML NEB NEB SCH ×2 (18:25→22:17)
[2018-02-13] VITALS (104 sets, daily range): BP systolic 100–189; BP diastolic 63–112
[2018-02-13] MEDS: METOPROLOL TARTRATE 1MG/1ML-5ML VIAL IV PRN ×2 (01:23→15:36)
[2018-02-13] MEDS: IPRATROPIUM BROM 0.5 MG/2.5ML INH SOL NEB SCH ×6 (02:32→22:19)
[2018-02-13] MEDS: LEVALBUTEROL HCL 1.25 MG/3 ML NEB NEB SCH ×6 (02:33→22:19)
[2018-02-13] MEDS ORDERED: METOPROLOL TARTRATE 1MG/1ML-5ML VIAL IV ONE (02:45)
[2018-02-13] MEDS: VANCOMYCIN 1GM/250ML 250 ML IV SCH ×3 (03:00→23:30)
[2018-02-13 03:44] LABS: Hematocrit 38.9 % (36.0-46.0); Hemoglobin 12.7 g/dL (12.2-16.2); Mean Corpuscular Hemoglobin 28.3 pg (28.0-32.0); Mean Corpuscular Hgb Conc. 32.8 g/dL (32.0-36.0); Mean Corpuscular Volume 86.3 fL (80.0-100.0); Platelet Count (auto) 249 10^3/uL (140-450); Red Blood Cells 4.51 10^6/uL (4.0-5.20); Red Cell Distribution Width 16.4 % (11.8-14.3); White Blood Cell 25.2 10^3/uL (4.4-10.8)
[2018-02-13 03:46] LABS: Basophils % (manual) 0 (0.0-2.0); Blast Cells 0; Eosinophils % (manual) 0 (0-7); Metamyelocytes % 0; Myelocytes % 0; Promyelocytes % 0; Reactive Lymphocytes 0
[2018-02-13 04:04] LABS: Albumin 3.1 g/dL (3.4-5.0); Bilirubin, Total 0.7 mg/dL (0.2-1.0); Calcium 8.3 mg/dL (8.5-10.1); Magnesium 2.8 mg/dL (1.6-2.6)
[2018-02-13 04:20] LABS: Band Neutrophils % (manual) 2; Lymphocytes % (manual) 2 (10.0-50.0); Monocytes % (manual) 3 (0-12)
[2018-02-13] MEDS: InsuLIN REG 1unit/0.01ml Soln (100units/ml) SC SCH ×4 (06:05→23:44)
[2018-02-13] MEDS: ACCU-CHEK COMFORT CURVE STRIP VI SCH ×4 (06:05→23:43)
[2018-02-13] MEDS: NIFEdipine 10 MG CAP PO SCH ×3 (06:06→22:16)
[2018-02-13] MEDS: SODIUM CHLORIDE 0.9% 1,000 ML IV SCH (06:06)
[2018-02-13] MEDS: methylPREDNISolone SOD SUCC 40 MG/ML VL IV SCH ×4 (06:06→23:43)
[2018-02-13] MEDS: MIDAZOLAM DRIP 50 mg/50mL 50 ML IV SCH ×2 (06:07→08:29)
[2018-02-13] MEDS: PIPERACILLIN-TAZOB 3.375GM 100 ML IV SCH ×3 (06:07→17:56)
[2018-02-13] MEDS: DOCUSATE ORAL LIQUID 100 MG/10 ML UD GT SCH (10:00)
[2018-02-13] MEDS ORDERED: FUROSEMIDE 20 MG TAB PO SCH (10:00)
[2018-02-13] MEDS: BUDESONIDE (INHALATION) 0.5 MG/2 ML NEB NEB SCH ×2 (10:12→18:16)
[2018-02-13] MEDS: PANTOPRAZOLE 40 MG/10 ML VIAL IV SCH (10:17)
[2018-02-13] MEDS: SODIUM CHLOR 0.9% PF (SALINE LOCK) 10ML VIAL/SYR IV SCH ×2 (10:17→22:09)
[2018-02-13] MEDS: METOPROLOL TARTRATE 25 MG TAB PO SCH ×2 (10:18→21:02)
[2018-02-13] MEDS: ENOXAPARIN SOD 40 MG/0.4 ML SYRINGE SC SCH (10:18)
[2018-02-13] MEDS: LORazepam 2MG/ML-1ML VIAL IV PRN ×2 (10:28→15:55)
[2018-02-13] MEDS ORDERED: DOCUSATE SOD 100 MG CAP PO ONE (10:32)
[2018-02-13] MEDS: fentaNYL Drip 2500mCg/250mlNS 250 ML IV SCH (10:56)
[2018-02-13] MEDS: FLUCONAZOLE 200MG/100ML 100 ML IV SCH ×2 (17:00→18:02)
[2018-02-14] VITALS (107 sets, daily range): BP systolic 92–188; BP diastolic 50–103
[2018-02-14] MEDS: LORazepam 2MG/ML-1ML VIAL IV PRN ×2 (00:01→11:38)
[2018-02-14] MEDS: PIPERACILLIN-TAZOB 3.375GM 100 ML IV SCH ×4 (00:01→18:19)
[2018-02-14] MEDS: LEVALBUTEROL HCL 1.25 MG/3 ML NEB NEB SCH ×6 (02:20→22:17)
[2018-02-14] MEDS: IPRATROPIUM BROM 0.5 MG/2.5ML INH SOL NEB SCH ×6 (02:20→22:17)
[2018-02-14 05:32] LABS: Basophils # (auto) 0.1 uL; Basophils % (auto) 0.4 % (0.0-2.0); Eosinophils # (auto) 0 uL; Hematocrit 40.2 % (36.0-46.0); Hemoglobin 13.7 g/dL (12.2-16.2); Lymphocytes # (auto) 0.8 uL; Lymphocytes % (auto) 3.2 % (10.0-50.0); Mean Corpuscular Hemoglobin 29.3 pg (28.0-32.0); Mean Corpuscular Hgb Conc. 34.1 g/dL (32.0-36.0); Monocytes # (auto) 0.9 uL; Monocytes % (auto) 3.6 % (0.0-12.0); Neutrophils # (auto) 23.7 uL; Neutrophils % (auto) 92.8 % (37.0-80.0); Nucleated Red Blood Cells % 0.1 %; Platelet Count (auto) 247 10^3/uL (140-450); Red Blood Cells 4.67 10^6/uL (4.0-5.20); Red Cell Distribution Width 15.5 % (11.8-14.3); White Blood Cell 25.5 10^3/uL (4.4-10.8)
[2018-02-14] MEDS: methylPREDNISolone SOD SUCC 40 MG/ML VL IV SCH ×2 (05:36→21:27)
[2018-02-14] MEDS: InsuLIN REG 1unit/0.01ml Soln (100units/ml) SC SCH ×3 (05:37→18:00)
[2018-02-14] MEDS: ACCU-CHEK COMFORT CURVE STRIP VI SCH ×3 (05:37→18:20)
[2018-02-14] MEDS: NIFEdipine 10 MG CAP PO SCH ×3 (05:37→23:24)
[2018-02-14 05:50] LABS: BUN/Creatinine Ratio 60.7; Calcium 8.7 mg/dL (8.5-10.1); Potassium 4.3 mmol/L (3.5-5.1)
[2018-02-14] MEDS: BUDESONIDE (INHALATION) 0.5 MG/2 ML NEB NEB SCH ×2 (05:53→22:17)
[2018-02-14] MEDS: VANCOMYCIN 1GM/250ML 250 ML IV SCH (07:07)
[2018-02-14] MEDS ORDERED: FLUCONAZOLE 100 MG TAB PO ONE (09:50)
[2018-02-14] MEDS: DOCUSATE ORAL LIQUID 100 MG/10 ML UD GT SCH (09:51)
[2018-02-14] MEDS: METOPROLOL TARTRATE 25 MG TAB PO SCH ×2 (09:51→22:32)
[2018-02-14] MEDS: LINEZOLID 600MG/300ML 300 ML IV SCH ×2 (09:51→22:06)
[2018-02-14] MEDS: PANTOPRAZOLE 40 MG/10 ML VIAL IV SCH (09:51)
[2018-02-14] MEDS: ENOXAPARIN SOD 40 MG/0.4 ML SYRINGE SC SCH (09:51)
[2018-02-14] MEDS: LACTULOSE 20Gm/30ML SOLN PO SCH ×2 (09:51→21:27)
[2018-02-14] MEDS: SODIUM CHLOR 0.9% PF (SALINE LOCK) 10ML VIAL/SYR IV SCH ×2 (09:51→21:26)
[2018-02-14] MEDS: fentaNYL Drip 2500mCg/250mlNS 250 ML IV SCH (09:52)
[2018-02-14] MEDS ORDERED: FLUCONAZOLE 200MG/100ML 100 ML IV SCH (10:00)
[2018-02-14] MEDS: METOPROLOL TARTRATE 1MG/1ML-5ML VIAL IV PRN (11:38)
[2018-02-14] MEDS ORDERED: MICAFUNGIN SODIUM 100 MG in SODIUM CHL 0.9% 100 ML IV ONE (11:45)
[2018-02-14] MEDS ORDERED: LORazepam 0.5 MG TAB PO PRN (11:45)
[2018-02-14] MEDS: LORazepam 0.5 MG TAB PO SCH ×2 (12:00→18:19)
[2018-02-14 12:03] LABS: Urine Bacteria FEW /hpf (None Seen); Urine Blood 2+ /uL (Negative); Urine Mucus FEW (None Seen); Urine Specific Gravity 1.014 (1.001-1.035); Urine WBC 5 /hpf (0 - 5)
[2018-02-14] MEDS: DEXMEDETOMIDINE HCL 400 MCG in D5W 5% 96 ML IV SCH (13:49)
[2018-02-14] MEDS ORDERED: methylPREDNISolone SOD SUCC 40 MG/ML VL IV SCH (14:00)
[2018-02-15] VITALS (85 sets, daily range): BP systolic 106–166; BP diastolic 59–85
[2018-02-15] MEDS: LORazepam 0.5 MG TAB PO SCH ×4 (00:26→18:13)
[2018-02-15] MEDS: PIPERACILLIN-TAZOB 3.375GM 100 ML IV SCH ×4 (00:26→18:13)
[2018-02-15] MEDS: ACCU-CHEK COMFORT CURVE STRIP VI SCH ×4 (00:27→18:13)
[2018-02-15] MEDS: InsuLIN REG 1unit/0.01ml Soln (100units/ml) SC SCH ×4 (00:27→18:00)
[2018-02-15] MEDS: LEVALBUTEROL HCL 1.25 MG/3 ML NEB NEB SCH ×6 (02:34→22:54)
[2018-02-15] MEDS: IPRATROPIUM BROM 0.5 MG/2.5ML INH SOL NEB SCH ×5 (02:34→22:54)
[2018-02-15 05:44] LABS: Basophils # (auto) 0 uL; Basophils % (auto) 0.2 % (0.0-2.0); Eosinophils # (auto) 0 uL; Hematocrit 35.3 % (36.0-46.0); Hemoglobin 11.8 g/dL (12.2-16.2); Lymphocytes # (auto) 0.6 uL; Lymphocytes % (auto) 3.7 % (10.0-50.0); Mean Corpuscular Hemoglobin 28.8 pg (28.0-32.0); Mean Corpuscular Hgb Conc. 33.3 g/dL (32.0-36.0); Mean Corpuscular Volume 86.6 fL (80.0-100.0); Monocytes # (auto) 0.5 uL; Monocytes % (auto) 3.4 % (0.0-12.0); Neutrophils # (auto) 14.5 uL; Neutrophils % (auto) 92.7 % (37.0-80.0); Nucleated Red Blood Cells % 0.1 %; Platelet Count (auto) 233 10^3/uL (140-450); Red Blood Cells 4.08 10^6/uL (4.0-5.20); Red Cell Distribution Width 15.6 % (11.8-14.3); White Blood Cell 15.7 10^3/uL (4.4-10.8)
[2018-02-15] MEDS: NIFEdipine 10 MG CAP PO SCH ×3 (06:00→22:38)
[2018-02-15 06:07] LABS: Calcium 8.2 mg/dL (8.5-10.1); Potassium 3.5 mmol/L (3.5-5.1)
[2018-02-15 06:09] LABS: BUN/Creatinine Ratio 45.2
[2018-02-15] MEDS: MIDAZOLAM DRIP 50 mg/50mL 50 ML IV SCH (06:40)
[2018-02-15] MEDS: METOPROLOL TARTRATE 25 MG TAB PO SCH ×2 (09:21→22:37)
[2018-02-15] MEDS: methylPREDNISolone SOD SUCC 40 MG/ML VL IV SCH ×2 (09:22→22:40)
[2018-02-15] MEDS: ENOXAPARIN SOD 40 MG/0.4 ML SYRINGE SC SCH (09:22)
[2018-02-15] MEDS: LACTULOSE 20Gm/30ML SOLN PO SCH ×2 (09:22→22:00)
[2018-02-15] MEDS: LINEZOLID 600MG/300ML 300 ML IV SCH ×2 (09:22→22:37)
[2018-02-15] MEDS: DOCUSATE ORAL LIQUID 100 MG/10 ML UD GT SCH (09:23)
[2018-02-15] MEDS: SODIUM CHLOR 0.9% PF (SALINE LOCK) 10ML VIAL/SYR IV SCH ×2 (09:23→22:00)
[2018-02-15] MEDS: MICAFUNGIN SODIUM 100 MG in SODIUM CHL 0.9% 100 ML IV SCH (09:23)
[2018-02-15] MEDS: PANTOPRAZOLE 40 MG/10 ML VIAL IV SCH (09:23)
[2018-02-15] MEDS: fentaNYL Drip 2500mCg/250mlNS 250 ML IV SCH (11:00)
[2018-02-15] MEDS: DEXMEDETOMIDINE HCL 400 MCG in D5W 5% 96 ML IV SCH (13:49)
[2018-02-15] MEDS: BUDESONIDE (INHALATION) 0.5 MG/2 ML NEB NEB SCH ×2 (19:07→19:17)
[2018-02-16] VITALS (7 sets, daily range): BP systolic 114–154; BP diastolic 67–83
[2018-02-16] MEDS: PIPERACILLIN-TAZOB 3.375GM 100 ML IV SCH ×4 (01:07→18:33)
[2018-02-16] MEDS: LEVALBUTEROL HCL 1.25 MG/3 ML NEB NEB SCH ×6 (03:01→23:50)
[2018-02-16] MEDS: IPRATROPIUM BROM 0.5 MG/2.5ML INH SOL NEB SCH ×6 (03:01→23:50)
[2018-02-16] MEDS: LORazepam 0.5 MG TAB PO SCH ×4 (06:00→18:32)
[2018-02-16] MEDS: InsuLIN REG 1unit/0.01ml Soln (100units/ml) SC SCH ×4 (06:00→18:00)
[2018-02-16 06:06] LABS: Basophils # (auto) 0 uL; Basophils % (auto) 0.1 % (0.0-2.0); Eosinophils # (auto) 0 uL; Hematocrit 36.8 % (36.0-46.0); Hemoglobin 12.3 g/dL (12.2-16.2); Lymphocytes # (auto) 0.8 uL; Lymphocytes % (auto) 5.8 % (10.0-50.0); Mean Corpuscular Hemoglobin 28.7 pg (28.0-32.0); Mean Corpuscular Hgb Conc. 33.3 g/dL (32.0-36.0); Mean Corpuscular Volume 86.1 fL (80.0-100.0); Monocytes # (auto) 0.6 uL; Monocytes % (auto) 4.6 % (0.0-12.0); Neutrophils # (auto) 11.9 uL; Neutrophils % (auto) 89.5 % (37.0-80.0); Platelet Count (auto) 266 10^3/uL (140-450); Red Blood Cells 4.28 10^6/uL (4.0-5.20); Red Cell Distribution Width 16.1 % (11.8-14.3); White Blood Cell 13.3 10^3/uL (4.4-10.8)
[2018-02-16 06:21] LABS: BUN/Creatinine Ratio 44.8; Calcium 8.6 mg/dL (8.5-10.1); Potassium 3.4 mmol/L (3.5-5.1)
[2018-02-16] MEDS: ACCU-CHEK COMFORT CURVE STRIP VI SCH ×4 (06:26→18:27)
[2018-02-16] MEDS: NIFEdipine 10 MG CAP PO SCH ×3 (06:45→22:50)
[2018-02-16] MEDS ORDERED: POTASSIUM CHL 10% (20 MEQ/15ML) 15ml ORAL SOLN GT ONE (09:15)
[2018-02-16] MEDS: MICAFUNGIN SODIUM 100 MG in SODIUM CHL 0.9% 100 ML IV SCH (09:20)
[2018-02-16] MEDS: LACTULOSE 20Gm/30ML SOLN PO SCH ×2 (10:00→22:00)
[2018-02-16] MEDS: DOCUSATE ORAL LIQUID 100 MG/10 ML UD GT SCH (10:00)
[2018-02-16] MEDS: BUDESONIDE (INHALATION) 0.5 MG/2 ML NEB NEB SCH ×2 (10:22→23:50)
[2018-02-16] MEDS: ENOXAPARIN SOD 40 MG/0.4 ML SYRINGE SC SCH (10:26)
[2018-02-16] MEDS: LINEZOLID 600MG/300ML 300 ML IV SCH ×2 (10:26→22:00)
[2018-02-16] MEDS: methylPREDNISolone SOD SUCC 40 MG/ML VL IV SCH ×2 (10:26→22:00)
[2018-02-16] MEDS: PANTOPRAZOLE 40 MG/10 ML VIAL IV SCH (10:26)
[2018-02-16] MEDS: METOPROLOL TARTRATE 25 MG TAB PO SCH ×2 (10:29→22:00)
[2018-02-16] MEDS: SERTRALINE HCL 50 MG TAB PO SCH (10:32)
[2018-02-16] MEDS: SODIUM CHLOR 0.9% PF (SALINE LOCK) 10ML VIAL/SYR IV SCH ×2 (10:32→22:00)
[2018-02-17] MEDS: InsuLIN REG 1unit/0.01ml Soln (100units/ml) SC SCH ×4 (00:20→17:31)
[2018-02-17] MEDS: ACCU-CHEK COMFORT CURVE STRIP VI SCH ×4 (00:20→17:31)
[2018-02-17] MEDS: LEVALBUTEROL HCL 1.25 MG/3 ML NEB NEB SCH ×5 (03:06→22:28)
[2018-02-17] MEDS: IPRATROPIUM BROM 0.5 MG/2.5ML INH SOL NEB SCH ×5 (03:06→18:31)
[2018-02-17 04:55] VITALS: BP 132/73
[2018-02-17] MEDS: LORazepam 0.5 MG TAB PO SCH ×4 (06:04→17:31)
[2018-02-17] MEDS: PIPERACILLIN-TAZOB 3.375GM 100 ML IV SCH ×2 (06:04)
[2018-02-17] MEDS: NIFEdipine 10 MG CAP PO SCH ×3 (06:05→22:25)
[2018-02-17 06:35] LABS: Basophils # (auto) 0.1 uL; Basophils % (auto) 0.5 % (0.0-2.0); Eosinophils # (auto) 0 uL; Eosinophils % (auto) 0.1 % (0.0-7.0); Hematocrit 35.7 % (36.0-46.0); Hemoglobin 12.2 g/dL (12.2-16.2); Lymphocytes # (auto) 1.1 uL; Lymphocytes % (auto) 10.8 % (10.0-50.0); Mean Corpuscular Hemoglobin 29.5 pg (28.0-32.0); Mean Corpuscular Hgb Conc. 34.1 g/dL (32.0-36.0); Mean Corpuscular Volume 86.5 fL (80.0-100.0); Monocytes # (auto) 0.7 uL; Monocytes % (auto) 6.9 % (0.0-12.0); Neutrophils # (auto) 8.2 uL; Neutrophils % (auto) 81.7 % (37.0-80.0); Nucleated Red Blood Cells % 0.1 %; Platelet Count (auto) 238 10^3/uL (140-450); Red Blood Cells 4.12 10^6/uL (4.0-5.20)
[2018-02-17 06:54] LABS: BUN/Creatinine Ratio 34.1; Calcium 8.5 mg/dL (8.5-10.1); Potassium 3.6 mmol/L (3.5-5.1)
[2018-02-17 07:27] VITALS: BP 132/73
[2018-02-17 08:41] VITALS: BP 112/56
[2018-02-17] MEDS: MICAFUNGIN SODIUM 100 MG in SODIUM CHL 0.9% 100 ML IV SCH (09:49)
[2018-02-17] MEDS: DOCUSATE ORAL LIQUID 100 MG/10 ML UD GT SCH (10:00)
[2018-02-17] MEDS: METOPROLOL TARTRATE 25 MG TAB PO SCH ×2 (10:00→22:27)
[2018-02-17] MEDS: LACTULOSE 20Gm/30ML SOLN PO SCH ×2 (10:00→22:00)
[2018-02-17] MEDS: BUDESONIDE (INHALATION) 0.5 MG/2 ML NEB NEB SCH ×2 (10:01→22:28)
[2018-02-17] MEDS: SODIUM CHLOR 0.9% PF (SALINE LOCK) 10ML VIAL/SYR IV SCH ×2 (10:23→22:26)
[2018-02-17] MEDS: PANTOPRAZOLE 40 MG/10 ML VIAL IV SCH (10:23)
[2018-02-17] MEDS: methylPREDNISolone SOD SUCC 40 MG/ML VL IV SCH ×2 (10:23→22:24)
[2018-02-17] MEDS: LINEZOLID 600MG/300ML 300 ML IV SCH ×2 (10:24→22:26)
[2018-02-17] MEDS: SERTRALINE HCL 50 MG TAB PO SCH (10:24)
[2018-02-17] MEDS: ENOXAPARIN SOD 40 MG/0.4 ML SYRINGE SC SCH (10:24)
[2018-02-17 13:00] VITALS: BP 135/76
[2018-02-17] MEDS: ACETAMINOPHEN 650 mg PER 20 mL UD GT PRN (15:55)
[2018-02-17 17:00] VITALS: BP 131/69
[2018-02-17] MEDS ORDERED: LORA-654 PO (18:30)
[2018-02-17 22:00] VITALS: BP 153/81
[2018-02-18] MEDS: InsuLIN REG 1unit/0.01ml Soln (100units/ml) SC SCH ×3 (00:30→11:46)
[2018-02-18] MEDS: LORazepam 0.5 MG TAB PO SCH ×5 (00:35→23:41)
[2018-02-18 05:00] VITALS: BP 143/73
[2018-02-18] MEDS: NIFEdipine 10 MG CAP PO SCH ×3 (06:04→22:19)
[2018-02-18] MEDS: IPRATROPIUM BROM 0.5 MG/2.5ML INH SOL NEB SCH ×4 (06:11→18:14)
[2018-02-18] MEDS: LEVALBUTEROL HCL 1.25 MG/3 ML NEB NEB SCH ×2 (06:12→14:02)
[2018-02-18] MEDS: PANTOPRAZOLE 40 MG/10 ML VIAL IV SCH (09:13)
[2018-02-18] MEDS: ENOXAPARIN SOD 40 MG/0.4 ML SYRINGE SC SCH (09:13)
[2018-02-18] MEDS: methylPREDNISolone SOD SUCC 40 MG/ML VL IV SCH (09:13)
[2018-02-18] MEDS: DOCUSATE ORAL LIQUID 100 MG/10 ML UD GT SCH (09:13)
[2018-02-18] MEDS: SERTRALINE HCL 50 MG TAB PO SCH (09:14)
[2018-02-18] MEDS: SODIUM CHLOR 0.9% PF (SALINE LOCK) 10ML VIAL/SYR IV SCH ×2 (09:14→22:00)
[2018-02-18] MEDS: MICAFUNGIN SODIUM 100 MG in SODIUM CHL 0.9% 100 ML IV SCH (09:14)
[2018-02-18] MEDS: LACTULOSE 20Gm/30ML SOLN PO SCH ×2 (09:15→22:00)
[2018-02-18] MEDS: METOPROLOL TARTRATE 25 MG TAB PO SCH ×2 (09:15→22:19)
[2018-02-18] MEDS: LINEZOLID 600MG/300ML 300 ML IV SCH ×2 (09:15→22:17)
[2018-02-18 09:33] VITALS: BP 152/85
[2018-02-18] MEDS: BUDESONIDE (INHALATION) 0.5 MG/2 ML NEB NEB SCH (10:08)
[2018-02-18] MEDS: ACCU-CHEK COMFORT CURVE STRIP VI SCH ×2 (11:39)
[2018-02-18 12:55] VITALS: BP 139/74
[2018-02-18 17:14] VITALS: BP 128/67
[2018-02-18 22:27] VITALS: BP 138/70
[2018-02-19] VITALS (7 sets, daily range): BP systolic 118–148; BP diastolic 25–78
[2018-02-19] MEDS: BUDESONIDE (INHALATION) 0.5 MG/2 ML NEB NEB SCH ×2 (00:09→09:49)
[2018-02-19] MEDS: LEVALBUTEROL HCL 1.25 MG/3 ML NEB NEB SCH ×3 (00:09→14:46)
[2018-02-19] MEDS ORDERED: IPRATROPIUM BROM 0.5 MG/2.5ML INH SOL ONE ×2 (05:24→14:24)
[2018-02-19] MEDS: IPRATROPIUM BROM 0.5 MG/2.5ML INH SOL NEB SCH ×4 (05:49→18:00)
[2018-02-19] MEDS: NIFEdipine 10 MG CAP PO SCH ×2 (06:00→15:51)
[2018-02-19] MEDS: LORazepam 0.5 MG TAB PO SCH ×2 (06:00→14:22)
[2018-02-19] MEDS: Nutren Pulmonary 250ml Bottle PO SCH ×2 (08:00→12:00)
[2018-02-19] MEDS: DOCUSATE ORAL LIQUID 100 MG/10 ML UD GT SCH (10:00)
[2018-02-19] MEDS ORDERED: predniSONE 20 MG TAB PO SCH (10:00)
[2018-02-19] MEDS: LACTULOSE 20Gm/30ML SOLN PO SCH (10:00)
[2018-02-19] MEDS ORDERED: PANT40TA2 PO (11:33)
[2018-02-19] MEDS ORDERED: SACC250C PO (11:53)
[2018-02-19] MEDS ORDERED: LINE600T PO (11:53)
[2018-02-19] MEDS ORDERED: FLUC200T35 PO (11:53)
[2018-02-19] MEDS: SODIUM CHLOR 0.9% PF (SALINE LOCK) 10ML VIAL/SYR IV SCH (14:20)
[2018-02-19] MEDS: MICAFUNGIN SODIUM 100 MG in SODIUM CHL 0.9% 100 ML IV SCH (14:20)
[2018-02-19] MEDS: PANTOPRAZOLE 40 MG/10 ML VIAL IV SCH (14:20)
[2018-02-19] MEDS: LINEZOLID 600MG/300ML 300 ML IV SCH (14:20)
[2018-02-19] MEDS: SERTRALINE HCL 50 MG TAB PO SCH (14:21)
[2018-02-19] MEDS: METOPROLOL TARTRATE 25 MG TAB PO SCH (14:21)
[2018-02-19] MEDS: ENOXAPARIN SOD 40 MG/0.4 ML SYRINGE SC SCH (14:22)
== END 2018-02-19 19:30 | disposition home health service, planned readmission (86) | DRG 870 ==
LOC: EDBD 05:17 → ER 05:41 → TELE 05:42 → MERGE 05:42 → ICU WEST 09:29 → DOU IN ICU 02-16 01:52 → TELE-CENTR 02-16 20:49
PROVIDERS: ADMIT Nurse Practitioner Family; ATTEND Internal Medicine
PROC: 0BH17EZ Insertion of Endotracheal Airway into Trachea, Via Natural or Artificial Opening (ICD-10-PCS; principal; 2018-02-02)
PROC: 5A1955Z Respiratory Ventilation, Greater than 96 Consecutive Hours (ICD-10-PCS; 2018-02-02)
PROC: 5A09357 Assistance with Respiratory Ventilation, Less than 24 Consecutive Hours, Continuous Positive Airway Pressure (ICD-10-PCS; 2018-02-02)
PROC: 02HV33Z Insertion of Infusion Device into Superior Vena Cava, Percutaneous Approach (ICD-10-PCS; 2018-02-08)
DX: A41.9 Sepsis, unspecified organism (principal); J96.21 Acute and chronic respiratory failure with hypoxia; J96.22 Acute and chronic respiratory failure with hypercapnia; J44.1 Chronic obstructive pulmonary disease with (acute) exacerbation; E87.2 Acidosis; E05.00 Thyrotoxicosis with diffuse goiter without thyrotoxic crisis or storm; E78.5 Hyperlipidemia, unspecified; F17.200 Nicotine dependence, unspecified, uncomplicated; I10 Essential (primary) hypertension; T38.0X5A Adverse effect of glucocorticoids and synthetic analogues, initial encounter; Z82.49 Family history of ischemic heart disease and other diseases of the circulatory system; Z71.6 Tobacco abuse counseling
CPT/HCPCS: 31500; 36415; 36569; 36600; 51702; 70450; 71045; 80048; 80053; 80202; 81001; 82270; 82805; 82962; 83540; 83550; 83605; 83735; 83880; 84443; 84484; 85007; 85014; 85018; 85025; 85027; 85045; 85610; 87040; 87070; 87076; 87077; 87081; 87086; 87088; 87186; 87205; 87493; 92610; 93005; 94002; 94003; 94640; 94644; 94645; 94660; 96365; 96367; 96375; 97530; 99291; C9113; J0330; J0690; J1450; J1815; J2248; J2250; J2543; J2704; J3490; J7060

== ENCOUNTER → 2018-09-14 | Outpatient (CLI) | payer BC ==
[~2018-09-14] MED LIST changes: -ALBU18; +ALBUTEROL SULF 2.5 MG/0.5ML(0.5%) NEB SOLN ONE; +BENZ1CAP24 PO; -DOXY-216 PO; +ESCI20TA51 PO; +FLUC200T35 PO; -FLUT500M6; +LINE1TAB6 PO; +LORA-654 PO; -LOS50T PO; +LOSA-46 PO; -MON10T PO; +MONT10TA34 PO; +PANT40TA2 PO; +SACC250C PO; -TUDORZA PRESSAIR 400 MCG; -VARE0.5P4; -VARE0.5P4 PO
== END | disposition home or self-care (01) ==
LOC: RT 08:48
PROVIDERS: ATTEND Internal Medicine Pulmonary Disease
DX: J43.8 Other emphysema (principal)
CPT/HCPCS: 94060; J7611

== ENCOUNTER → 2018-11-07 | Outpatient (CLI) | payer BC ==
[~2018-11-07] MED LIST changes: -ALBUTEROL SULF 2.5 MG/0.5ML(0.5%) NEB SOLN ONE
[2018-11-07 10:25] LABS: Basophils # (auto) 0 uL; Basophils % (auto) 0.7 % (0.0-2.0); Eosinophils # (auto) 0.1 uL; Eosinophils % (auto) 2.3 % (0.0-7.0); Hematocrit 37.4 % (36.0-46.0); Hemoglobin 12.4 g/dL (12.2-16.2); Lymphocytes # (auto) 2.7 uL; Lymphocytes % (auto) 44.5 % (10.0-50.0); Mean Corpuscular Hemoglobin 30.6 pg (28.0-32.0); Mean Corpuscular Hgb Conc. 33.1 g/dL (32.0-36.0); Mean Corpuscular Volume 92.5 fL (80.0-100.0); Monocytes # (auto) 0.6 uL; Monocytes % (auto) 9.2 % (0.0-12.0); Neutrophils # (auto) 2.6 uL; Neutrophils % (auto) 43.3 % (37.0-80.0); Nucleated Red Blood Cells % 0.1 %; Platelet Count (auto) 318 10^3/uL (140-450); Red Blood Cells 4.04 10^6/uL (4.0-5.20); Red Cell Distribution Width 14.2 % (11.8-14.3)
[2018-11-07 11:15] LABS: Potassium 4.2 mmol/L (3.5-5.1)
[2018-11-07 11:30] LABS: Albumin 3.6 g/dL (3.4-5.0); BUN/Creatinine Ratio 19.4; Bilirubin, Total 0.2 mg/dL (0.2-1.0); Calcium 8.6 mg/dL (8.5-10.1); Total Protein 6.8 g/dL (6.4-8.2)
== END | disposition home or self-care (01) ==
LOC: LAB 09:30
PROVIDERS: ATTEND Physician Assistant
DX: I10 Essential (primary) hypertension (principal); J96.11 Chronic respiratory failure with hypoxia; F41.9 Anxiety disorder, unspecified; E78.49 Other hyperlipidemia; Z86.39 Personal history of other endocrine, nutritional and metabolic disease
CPT/HCPCS: 36415; 80053; 80061; 84443; 85025

== ENCOUNTER → 2020-02-12 | Outpatient (CLI) | payer BC ==
[~2020-02-12] MED LIST changes: -LORA-654 PO; +LORA0.5T12 PO; -LOSA-46 PO; +LOSA-69 PO; +NIFE1TAB30 PO; -NIFE60TA59 PO
[2020-02-12 12:36] LABS: Basophils # (auto) 0.1 10 ^3/uL (0-0.2); Basophils % (auto) 0.6 % (0.0-2.0); Eosinophils # (auto) 0.1 10 ^3/uL (0-0.8); Eosinophils % (auto) 0.8 % (0.0-7.0); Hematocrit 37.3 % (36.0-46.0); Hemoglobin 12.2 g/dL (12.2-16.2); Lymphocytes # (auto) 1.9 10 ^3/uL (0.4-5.4); Mean Corpuscular Hemoglobin 30.2 pg (28.0-32.0); Mean Corpuscular Hgb Conc. 32.8 g/dL (32.0-36.0); Mean Corpuscular Volume 92.3 fL (80.0-100.0); Monocytes # (auto) 0.6 10 ^3/uL (0-1.3); Monocytes % (auto) 4.8 % (0.0-12.0); Neutrophils % (auto) 77.8 % (37.0-80.0); Nucleated Red Blood Cells % 0.1 %; Platelet Count (auto) 296 10^3/uL (140-450); Red Blood Cells 4.04 10^6/uL (4.0-5.20); Red Cell Distribution Width 14.6 % (11.8-14.3); White Blood Cell 11.6 10^3/uL (4.4-10.8)
[2020-02-12 13:25] LABS: Potassium 4.1 mmol/L (3.5-5.1)
[2020-02-12 13:37] LABS: Albumin 3.8 g/dL (3.4-5.0); BUN/Creatinine Ratio 13.6; Bilirubin, Total 0.3 mg/dL (0.2-1.0); Calcium 8.9 mg/dL (8.5-10.1); Total Protein 6.8 g/dL (6.4-8.2)
== END | disposition home or self-care (01) ==
LOC: LAB 12:14
PROVIDERS: ATTEND Physician Assistant
DX: J96.11 Chronic respiratory failure with hypoxia (principal); E78.49 Other hyperlipidemia; R94.6 Abnormal results of thyroid function studies; F41.1 Generalized anxiety disorder
CPT/HCPCS: 36415; 80053; 80061; 84443; 85025

== ENCOUNTER → 2020-10-06 | Outpatient (CLI) | payer BC ==
[~2020-10-06] VITALS: Ht 152.4 cm; Wt 61.2 kg
[~2020-10-06] MED LIST changes: +ADENOSINE 51 MG in GIVE UN-DILUTED 0 ML IV ONE; +ATROPINE SULF 0.5 MG/5ML SYR ONE; -BENZ1CAP24 PO; +BENZ200C64 PO; +DOBUTamine 1000MCG/ML 100 ML IV ONE; +ESCI-34 PO; -ESCI20TA51 PO; -LORA0.5T12 PO; +LORA0.5T20 PO
[2020-10-06 10:33] VITALS: BP 111/61
== END | disposition home or self-care (01) ==
LOC: XY 08:07
PROVIDERS: ATTEND Internal Medicine
DX: Z01.810 Encounter for preprocedural cardiovascular examination (principal); J44.9 Chronic obstructive pulmonary disease, unspecified
CPT/HCPCS: 78452; 93017; 93306; A9500; J0153; J0461; J1250

== ENCOUNTER → 2020-11-24 | Outpatient (CLI) | payer BC ==
[~2020-11-24] MED LIST changes: -ADENOSINE 51 MG in GIVE UN-DILUTED 0 ML IV ONE; -ATROPINE SULF 0.5 MG/5ML SYR ONE; -DOBUTamine 1000MCG/ML 100 ML IV ONE
[2020-11-24 13:51] LABS: Urine WBC None Seen /hpf (0 - 5)
[2020-11-24 13:54] LABS: Basophils # (auto) 0 10 ^3/uL (0-0.2); Basophils % (auto) 0.3 % (0.0-2.0); Eosinophils # (auto) 0 10 ^3/uL (0-0.8); Eosinophils % (auto) 0.1 % (0.0-7.0); Hematocrit 36.2 % (36.0-46.0); Hemoglobin 12.1 g/dL (12.2-16.2); Lymphocytes # (auto) 0.9 10 ^3/uL (0.4-5.4); Lymphocytes % (auto) 10.9 % (10.0-50.0); Mean Corpuscular Hemoglobin 30.8 pg (28.0-32.0); Mean Corpuscular Hgb Conc. 33.4 g/dL (32.0-36.0); Mean Corpuscular Volume 92.1 fL (80.0-100.0); Monocytes # (auto) 0.2 10 ^3/uL (0-1.3); Monocytes % (auto) 2.4 % (0.0-12.0); Neutrophils # (auto) 7.4 10 ^3/uL (1.6-8.6); Neutrophils % (auto) 86.3 % (37.0-80.0); Platelet Count (auto) 286 10^3/uL (140-450); Red Blood Cells 3.92 10^6/uL (4.0-5.20); Red Cell Distribution Width 13.9 % (11.8-14.3); White Blood Cell 8.6 10^3/uL (4.4-10.8)
[2020-11-24 14:13] LABS: Urine Bacteria NONE SEEN /hpf (None Seen); Urine Blood Negative /uL (Negative); Urine Specific Gravity 1.003 (1.001-1.035)
[2020-11-24 14:15] LABS: INR 0.93 (0.9-1.15); Partial Thromboplastin Time 24.2 sec (23.0-31.2)
[2020-11-24 14:22] LABS: Albumin 3.9 g/dL (3.4-5.0); Calcium 9.1 mg/dL (8.5-10.1); Potassium 4.3 mmol/L (3.5-5.1)
[2020-11-24 14:25] LABS: BUN/Creatinine Ratio 18.2; Bilirubin, Total 0.3 mg/dL (0.2-1.0); Total Protein 6.7 g/dL (6.4-8.2)
== END | disposition home or self-care (01) ==
LOC: LAB 13:41
DX: H25.12 Age-related nuclear cataract, left eye (principal)
CPT/HCPCS: 36415; 80053; 81001; 82306; 85025; 85610; 85730

== ENCOUNTER → 2021-03-23 | Outpatient (CLI) | payer BC ==
[~2021-03-23] MED LIST changes: -MONT10TA34 PO; +MONT10TA42 PO
[2021-03-23 13:12] LABS: Basophils # (auto) 0.1 10 ^3/uL (0-0.2); Basophils % (auto) 0.6 % (0.0-2.0); Eosinophils # (auto) 0.1 10 ^3/uL (0-0.8); Eosinophils % (auto) 0.4 % (0.0-7.0); Hematocrit 38.4 % (36.0-46.0); Hemoglobin 12.8 g/dL (12.2-16.2); Lymphocytes # (auto) 1.3 10 ^3/uL (0.4-5.4); Lymphocytes % (auto) 10.2 % (10.0-50.0); Mean Corpuscular Hemoglobin 30.2 pg (28.0-32.0); Mean Corpuscular Hgb Conc. 33.3 g/dL (32.0-36.0); Mean Corpuscular Volume 90.7 fL (80.0-100.0); Monocytes # (auto) 0.4 10 ^3/uL (0-1.3); Neutrophils # (auto) 11.3 10 ^3/uL (1.6-8.6); Neutrophils % (auto) 85.8 % (37.0-80.0); Red Blood Cells 4.24 10^6/uL (4.0-5.20); Red Cell Distribution Width 14.3 % (11.8-14.3); White Blood Cell 13.1 10^3/uL (4.4-10.8)
[2021-03-23 14:52] LABS: Albumin 3.8 g/dL (3.4-5.0); BUN/Creatinine Ratio 16.7; Calcium 9.2 mg/dL (8.5-10.1); Potassium 4.4 mmol/L (3.5-5.1)
[2021-03-23 14:55] LABS: Bilirubin, Total 0.4 mg/dL (0.2-1.0); Total Protein 6.6 g/dL (6.4-8.2)
== END | disposition home or self-care (01) ==
LOC: LAB 12:46
PROVIDERS: ATTEND Nurse Practitioner Family
DX: I11.0 Hypertensive heart disease with heart failure (principal); I50.33 Acute on chronic diastolic (congestive) heart failure
CPT/HCPCS: 36415; 80053; 85025

== ENCOUNTER → 2021-08-18 | Outpatient (CLI) | payer BC, MEDICARE ==
[~2021-08-18] MED LIST changes: +MONT-8 PO; -MONT10TA42 PO
[2021-08-18 14:46] LABS: Albumin 3.7 g/dL (3.4-5.0); BUN/Creatinine Ratio 19.7; Calcium 8.8 mg/dL (8.5-10.1); Potassium 4.5 mmol/L (3.5-5.1)
[2021-08-18 14:48] LABS: Bilirubin, Total 0.3 mg/dL (0.2-1.0); Total Protein 6.9 g/dL (6.4-8.2)
== END | disposition home or self-care (01) ==
LOC: LAB 13:46
PROVIDERS: ATTEND Nurse Practitioner Family
DX: I50.33 Acute on chronic diastolic (congestive) heart failure (principal)
CPT/HCPCS: 36415; 80053

== ENCOUNTER → 2021-11-25 | Outpatient (CLI) | payer BC ==
[2021-11-25 09:27] LABS: Basophils # (auto) 0.1 10 ^3/uL (0-0.2); Basophils % (auto) 0.6 % (0.0-2.0); Eosinophils # (auto) 0.1 10 ^3/uL (0-0.8); Eosinophils % (auto) 0.8 % (0.0-7.0); Hematocrit 35.7 % (36.0-46.0); Lymphocytes # (auto) 1.9 10 ^3/uL (0.4-5.4); Lymphocytes % (auto) 19.3 % (10.0-50.0); Mean Corpuscular Hemoglobin 30.7 pg (28.0-32.0); Mean Corpuscular Hgb Conc. 33.7 g/dL (32.0-36.0); Mean Corpuscular Volume 91.2 fL (80.0-100.0); Monocytes # (auto) 0.6 10 ^3/uL (0-1.3); Monocytes % (auto) 5.8 % (0.0-12.0); Neutrophils # (auto) 7.2 10 ^3/uL (1.6-8.6); Neutrophils % (auto) 73.5 % (37.0-80.0); Red Blood Cells 3.91 10^6/uL (4.0-5.20); Red Cell Distribution Width 14.9 % (11.8-14.3); White Blood Cell 9.8 10^3/uL (4.4-10.8)
[2021-11-25 10:03] LABS: Albumin 3.2 g/dL (3.4-5.0); Calcium 9.1 mg/dL (8.5-10.1); Potassium 3.9 mmol/L (3.5-5.1)
[2021-11-25 10:10] LABS: BUN/Creatinine Ratio 14.5; Bilirubin, Total 0.2 mg/dL (0.2-1.0); Total Protein 6.5 g/dL (6.4-8.2)
[2021-11-25 10:18] LABS: Free T3 2.75 pg/mL (2.3-4.2); Free T4 (Free Thyroxine) 0.83 ng/dL (0.89-1.76)
== END | disposition home or self-care (01) ==
LOC: LAB 08:19
PROVIDERS: ATTEND Nurse Practitioner Acute Care
DX: I10 Essential (primary) hypertension (principal)
CPT/HCPCS: 36415; 80053; 80061; 83036; 84439; 84443; 84481; 85025

== ENCOUNTER → 2022-04-05 | Outpatient (CLI) | payer BC | END | disposition home or self-care (01) | LOC: XYW 14:33 | PROVIDERS: ATTEND Internal Medicine | DX: I35.8 Other nonrheumatic aortic valve disorders (principal); I47.9 Paroxysmal tachycardia, unspecified | CPT/HCPCS: 93306 ==

== ENCOUNTER 2022-08-02 18:24 | Inpatient (IN) | payer BC ==
[~2022-08-02] VITALS: Ht 149.9 cm; Wt 58.0 kg
[2022-08-02 22:00] VITALS: BP 151/83
[2022-08-02 22:21] LABS: Hematocrit 37.9 % (36.0-46.0); Hemoglobin 12.2 g/dL (12.2-16.2)
[2022-08-02 22:23] LABS: Mean Corpuscular Hemoglobin 29.2 pg (28.0-32.0); Mean Corpuscular Hgb Conc. 32.1 g/dL (32.0-36.0); Mean Corpuscular Volume 91.1 fL (80.0-100.0); Red Blood Cells 4.16 10^6/uL (4.0-5.20)
[2022-08-02 22:25] LABS: White Blood Cell 35.5 10^3/uL (4.4-10.8)
[2022-08-02 22:26] LABS: Basophils % (manual) 0 (0.0-2.0); Blast Cells 0; Eosinophils % (manual) 0 (0-7); Metamyelocytes % 0; Myelocytes % 0; Promyelocytes % 0; Reactive Lymphocytes 0
[2022-08-02] MEDS: SODIUM CHLOR 0.9% PF (SALINE LOCK) 10ML VIAL/SYR IV SCH (22:26)
[2022-08-02] MEDS: cefTRIAXone 1GM/50ML D5W 50 ML IV SCH (22:26)
[2022-08-02 22:35] LABS: INR 0.92 (0.9-1.15)
[2022-08-02 22:36] LABS: Band Neutrophils % (manual) 47; Lymphocytes % (manual) 5 (10.0-50.0); Monocytes % (manual) 4 (0-12)
[2022-08-02] MEDS: AZITHROMYCIN 500MG/ 250ML 250 ML IV SCH (23:09)
[2022-08-02] MEDS: methylPREDNISolone SOD SUCC 125 MG/2 ML VL IV SCH (23:09)
[2022-08-02 23:16] VITALS: BP 151/83
[2022-08-02 23:25] LABS: Albumin 3.3 g/dL (3.4-5.0); Calcium 8.3 mg/dL (8.5-10.1); Potassium 4.5 mmol/L (3.5-5.1)
[2022-08-02 23:28] LABS: BUN/Creatinine Ratio 15.3; Bilirubin, Total 0.2 mg/dL (0.2-1.0); Total Protein 6.2 g/dL (6.4-8.2)
[2022-08-03] MEDS: IPRATROPIUM BROM 0.5 MG/2.5ML INH SOL NEB SCH ×4 (00:05→18:35)
[2022-08-03] MEDS: ALBUTEROL SULF 2.5 MG/0.5ML(0.5%) NEB SOLN NEB SCH ×4 (00:05→18:35)
[2022-08-03 00:54] VITALS: BP 151/83
[2022-08-03] MEDS ORDERED: TEMAZEPAM 15 MG CAP PO ONE (01:00)
[2022-08-03] MEDS ORDERED: ALPR1TAB2 PO (01:11)
[2022-08-03] MEDS ORDERED: DILT120C12 PO (01:16)
[2022-08-03] MEDS ORDERED: SIMV-8 PO (01:16)
[2022-08-03] MEDS ORDERED: DIP25C PO (01:16)
[2022-08-03] MEDS ORDERED: VENL150C58 PO (01:16)
[2022-08-03] MEDS ORDERED: ASCO500T11 PO (01:17)
[2022-08-03] MEDS ORDERED: PRED10TA PO (01:17)
[2022-08-03 05:00] VITALS: BP 157/73
[2022-08-03] MEDS: SODIUM CHLOR 0.9% PF (SALINE LOCK) 10ML VIAL/SYR IV SCH ×3 (05:07→21:25)
[2022-08-03] MEDS ORDERED: IPRATROPIUM BROM 0.5 MG/2.5ML INH SOL ONE ×3 (05:45→18:44)
[2022-08-03] MEDS ORDERED: ALBUTEROL SULF 2.5 MG/0.5ML(0.5%) NEB SOLN ONE ×3 (05:45→18:44)
[2022-08-03 06:09] LABS: Basophils # (auto) 0 10 ^3/uL (0-0.2); Eosinophils # (auto) 0 10 ^3/uL (0-0.8); Hemoglobin 11.8 g/dL (12.2-16.2); Lymphocytes # (auto) 0.8 10 ^3/uL (0.4-5.4)
[2022-08-03 06:11] LABS: Hematocrit 36.8 % (36.0-46.0); Lymphocytes % (auto) 2.4 % (10.0-50.0); Mean Corpuscular Hemoglobin 28.9 pg (28.0-32.0); Mean Corpuscular Hgb Conc. 31.9 g/dL (32.0-36.0); Mean Corpuscular Volume 90.6 fL (80.0-100.0); Monocytes # (auto) 0.7 10 ^3/uL (0-1.3); Monocytes % (auto) 2.2 % (0.0-12.0); Neutrophils # (auto) 30.9 10 ^3/uL (1.6-8.6); Neutrophils % (auto) 95.4 % (37.0-80.0); Red Blood Cells 4.07 10^6/uL (4.0-5.20)
[2022-08-03 06:27] LABS: BUN/Creatinine Ratio 20.8; Calcium 8.8 mg/dL (8.5-10.1); Potassium 4.2 mmol/L (3.5-5.1)
[2022-08-03 06:30] LABS: Bilirubin, Total 0.2 mg/dL (0.2-1.0); Total Protein 6.4 g/dL (6.4-8.2)
[2022-08-03 06:57] LABS: White Blood Cell 32.4 10^3/uL (4.4-10.8)
[2022-08-03 09:00] VITALS: BP 158/72
[2022-08-03] MEDS: methylPREDNISolone SOD SUCC 125 MG/2 ML VL IV SCH ×3 (09:36→21:24)
[2022-08-03] MEDS: LOSARTAN POTASSIUM 50 MG TAB PO SCH (09:36)
[2022-08-03] MEDS: MONTELUKAST SODIUM 10 MG TAB PO SCH (09:36)
[2022-08-03] MEDS: cefTRIAXone 1GM/50ML D5W 50 ML IV SCH (09:36)
[2022-08-03] MEDS ORDERED: ENOXAPARIN SOD 40 MG/0.4 ML SYRINGE SC SCH (10:00)
[2022-08-03] MEDS ORDERED: dilTIAZem 120MG ER CAP PO ONE (11:15)
[2022-08-03] MEDS ORDERED: VANCOMYCIN PER PHARMACY 0 MG IV SCH (11:15)
[2022-08-03] MEDS ORDERED: VENLAFAXINE HCL 37.5mg XR cap PO ONE (11:15)
[2022-08-03] MEDS: ALPRAZolam 0.5 MG TAB PO PRN ×2 (12:58→21:26)
[2022-08-03] MEDS: VANCOMYCIN 750mg/250ml 250 ML IV SCH (12:59)
[2022-08-03 13:00] VITALS: BP 145/77
[2022-08-03 17:00] VITALS: BP 125/68
[2022-08-03] MEDS: AZITHROMYCIN 500MG/ 250ML 250 ML IV SCH (21:23)
[2022-08-03] MEDS: ATORVASTATIN 20 MG TAB PO SCH (21:25)
[2022-08-03 22:00] VITALS: BP 143/77
[2022-08-04] MEDS ORDERED: ALBUTEROL SULF 2.5 MG/0.5ML(0.5%) NEB SOLN ONE ×6 (00:05→21:39)
[2022-08-04] MEDS ORDERED: IPRATROPIUM BROM 0.5 MG/2.5ML INH SOL ONE ×6 (00:05→21:39)
[2022-08-04] MEDS: IPRATROPIUM BROM 0.5 MG/2.5ML INH SOL NEB SCH ×5 (00:09→21:45)
[2022-08-04] MEDS: ALBUTEROL SULF 2.5 MG/0.5ML(0.5%) NEB SOLN NEB SCH ×5 (00:09→21:45)
[2022-08-04] MEDS: VANCOMYCIN 750mg/250ml 250 ML IV SCH ×2 (00:46→13:07)
[2022-08-04] MEDS: MEROPENEM 1GM IVPB 100 ML IV SCH ×2 (01:04→15:12)
[2022-08-04 05:00] VITALS: BP 129/60
[2022-08-04 05:12] LABS: Hematocrit 36.3 % (36.0-46.0); Hemoglobin 11.5 g/dL (12.2-16.2); Mean Corpuscular Hemoglobin 28.5 pg (28.0-32.0); Mean Corpuscular Hgb Conc. 31.6 g/dL (32.0-36.0); Red Blood Cells 4.04 10^6/uL (4.0-5.20); Red Cell Distribution Width 14.6 % (11.8-14.3)
[2022-08-04 05:16] LABS: White Blood Cell 33.1 10^3/uL (4.4-10.8)
[2022-08-04 05:17] LABS: Basophils % (manual) 0 (0.0-2.0); Blast Cells 0; Eosinophils % (manual) 0 (0-7); Metamyelocytes % 0; Myelocytes % 0; Promyelocytes % 0; Reactive Lymphocytes 0
[2022-08-04 05:38] LABS: Calcium 9.1 mg/dL (8.5-10.1); Potassium 4.1 mmol/L (3.5-5.1)
[2022-08-04 05:41] LABS: BUN/Creatinine Ratio 38.1
[2022-08-04] MEDS: methylPREDNISolone SOD SUCC 125 MG/2 ML VL IV SCH ×3 (06:04→22:31)
[2022-08-04] MEDS: SODIUM CHLOR 0.9% PF (SALINE LOCK) 10ML VIAL/SYR IV SCH ×3 (06:04→22:00)
[2022-08-04] MEDS: ALPRAZolam 0.5 MG TAB PO PRN ×2 (06:07→15:14)
[2022-08-04 07:29] LABS: Band Neutrophils % (manual) 31; Lymphocytes % (manual) 3 (10.0-50.0); Monocytes % (manual) 2 (0-12)
[2022-08-04 09:20] VITALS: BP 137/51
[2022-08-04] MEDS: cefTRIAXone 1GM/50ML D5W 50 ML IV SCH (10:28)
[2022-08-04] MEDS: LOSARTAN POTASSIUM 50 MG TAB PO SCH (10:29)
[2022-08-04] MEDS: dilTIAZem 120MG ER CAP PO SCH (10:29)
[2022-08-04] MEDS: MONTELUKAST SODIUM 10 MG TAB PO SCH (10:30)
[2022-08-04] MEDS: VENLAFAXINE HCL 37.5mg XR cap PO SCH (10:30)
[2022-08-04] MEDS ORDERED: MEROPENEM 1GM IVPB 100 ML IV ONE (11:00)
[2022-08-04 11:19] LABS: Urine Bacteria NONE SEEN /hpf (None Seen); Urine Blood 1+ /uL (Negative); Urine Mucus FEW (None Seen); Urine Specific Gravity 1.011 (1.001-1.035); Urine WBC 1 /hpf (0 - 5)
[2022-08-04 13:00] VITALS: BP 145/76
[2022-08-04 17:00] VITALS: BP 132/76
[2022-08-04] MEDS: AZITHROMYCIN 500MG/ 250ML 250 ML IV SCH (21:07)
[2022-08-04 22:00] VITALS: BP 144/73
[2022-08-04] MEDS: ATORVASTATIN 20 MG TAB PO SCH (22:31)
[2022-08-05] MEDS: VANCOMYCIN 750mg/250ml 250 ML IV SCH ×3 (00:03→20:00)
[2022-08-05] MEDS: MEROPENEM 1GM IVPB 100 ML IV SCH ×3 (01:04→18:39)
[2022-08-05] MEDS: ALBUTEROL SULF 2.5 MG/0.5ML(0.5%) NEB SOLN NEB PRN (01:54)
[2022-08-05 05:00] VITALS: BP 141/62
[2022-08-05 05:31] LABS: Basophils # (auto) 0 10 ^3/uL (0-0.2); Basophils % (auto) 0.1 % (0.0-2.0); Eosinophils # (auto) 0 10 ^3/uL (0-0.8); Hematocrit 34.7 % (36.0-46.0); Hemoglobin 11.2 g/dL (12.2-16.2); Mean Corpuscular Hemoglobin 28.9 pg (28.0-32.0); Mean Corpuscular Hgb Conc. 32.3 g/dL (32.0-36.0); Mean Corpuscular Volume 89.6 fL (80.0-100.0); Monocytes # (auto) 0.9 10 ^3/uL (0-1.3); Monocytes % (auto) 3.7 % (0.0-12.0); Neutrophils # (auto) 22.8 10 ^3/uL (1.6-8.6); Neutrophils % (auto) 92.2 % (37.0-80.0); Red Blood Cells 3.87 10^6/uL (4.0-5.20); Red Cell Distribution Width 14.4 % (11.8-14.3); White Blood Cell 24.7 10^3/uL (4.4-10.8)
[2022-08-05 05:48] LABS: Potassium 4.1 mmol/L (3.5-5.1)
[2022-08-05 05:52] LABS: BUN/Creatinine Ratio 35.4
[2022-08-05] MEDS: methylPREDNISolone SOD SUCC 125 MG/2 ML VL IV SCH ×3 (06:11→22:11)
[2022-08-05] MEDS: SODIUM CHLOR 0.9% PF (SALINE LOCK) 10ML VIAL/SYR IV SCH ×3 (06:11→22:11)
[2022-08-05] MEDS: IPRATROPIUM BROM 0.5 MG/2.5ML INH SOL NEB SCH ×5 (06:20→21:48)
[2022-08-05] MEDS: ALBUTEROL SULF 2.5 MG/0.5ML(0.5%) NEB SOLN NEB SCH ×5 (06:20→21:47)
[2022-08-05] MEDS ORDERED: VANCOMYCIN 750mg/250ml 250 ML IV SCH (08:30)
[2022-08-05] MEDS: ALPRAZolam 0.5 MG TAB PO PRN ×2 (09:25→18:38)
[2022-08-05] MEDS: VENLAFAXINE HCL 37.5mg XR cap PO SCH (09:26)
[2022-08-05] MEDS: dilTIAZem 120MG ER CAP PO SCH (09:26)
[2022-08-05] MEDS: MONTELUKAST SODIUM 10 MG TAB PO SCH (09:27)
[2022-08-05] MEDS: LOSARTAN POTASSIUM 50 MG TAB PO SCH (09:27)
[2022-08-05 09:30] VITALS: BP 140/72
[2022-08-05 13:05] VITALS: BP 130/52
[2022-08-05] MEDS: ACETYLCYSTEINE 20%(200MG/ML) SOL 4ML NEB SCH ×2 (14:30→21:48)
[2022-08-05] MEDS: ACETAMINOPHEN 325 MG TAB PO PRN (15:11)
[2022-08-05 17:34] VITALS: BP 155/62
[2022-08-05 22:00] VITALS: BP 141/69
[2022-08-05] MEDS: ATORVASTATIN 20 MG TAB PO SCH (22:11)
[2022-08-05] MEDS: AZITHROMYCIN 500MG/ 250ML 250 ML IV SCH (22:11)
[2022-08-05 23:15] VITALS: BP 141/69
[2022-08-06] MEDS: MEROPENEM 1GM IVPB 100 ML IV SCH ×3 (02:58→20:12)
[2022-08-06] MEDS: ALPRAZolam 0.5 MG TAB PO PRN (04:11)
[2022-08-06 04:54] VITALS: BP 123/75
[2022-08-06] MEDS: SODIUM CHLOR 0.9% PF (SALINE LOCK) 10ML VIAL/SYR IV SCH ×3 (06:22→21:54)
[2022-08-06] MEDS: methylPREDNISolone SOD SUCC 125 MG/2 ML VL IV SCH ×3 (06:22→21:52)
[2022-08-06 06:41] LABS: Hematocrit 34.8 % (36.0-46.0); Hemoglobin 11.7 g/dL (12.2-16.2); Mean Corpuscular Hemoglobin 29.8 pg (28.0-32.0); Mean Corpuscular Hgb Conc. 33.5 g/dL (32.0-36.0); Mean Corpuscular Volume 88.8 fL (80.0-100.0); Red Blood Cells 3.92 10^6/uL (4.0-5.20); Red Cell Distribution Width 14.4 % (11.8-14.3); White Blood Cell 17.8 10^3/uL (4.4-10.8)
[2022-08-06 06:48] LABS: Basophils % (manual) 0 (0.0-2.0); Blast Cells 0; Eosinophils % (manual) 0 (0-7); Metamyelocytes % 0; Promyelocytes % 0; Reactive Lymphocytes 0
[2022-08-06 06:53] LABS: BUN/Creatinine Ratio 42.9; Calcium 8.7 mg/dL (8.5-10.1); Potassium 4.1 mmol/L (3.5-5.1)
[2022-08-06] MEDS: IPRATROPIUM BROM 0.5 MG/2.5ML INH SOL NEB SCH ×5 (07:04→21:47)
[2022-08-06] MEDS: ALBUTEROL SULF 2.5 MG/0.5ML(0.5%) NEB SOLN NEB SCH ×5 (07:04→21:47)
[2022-08-06] MEDS: ACETYLCYSTEINE 20%(200MG/ML) SOL 4ML NEB SCH ×3 (07:04→21:48)
[2022-08-06 09:30] VITALS: BP 159/58
[2022-08-06] MEDS: ACETAMINOPHEN 325 MG TAB PO PRN (09:56)
[2022-08-06] MEDS: LOSARTAN POTASSIUM 50 MG TAB PO SCH (09:57)
[2022-08-06] MEDS: VENLAFAXINE HCL 37.5mg XR cap PO SCH (09:57)
[2022-08-06] MEDS: MONTELUKAST SODIUM 10 MG TAB PO SCH (09:57)
[2022-08-06] MEDS: dilTIAZem 120MG ER CAP PO SCH (09:58)
[2022-08-06] MEDS: VANCOMYCIN 750mg/250ml 250 ML IV SCH ×2 (09:59→18:30)
[2022-08-06] MEDS ORDERED: VANCOMYCIN 750mg/250ml 250 ML IV SCH (10:00)
[2022-08-06] MEDS: LORazepam 0.5 MG TAB PO PRN ×2 (10:34→21:52)
[2022-08-06] MEDS: MORPHINE SULFATE INJ 2 MG/ml SYRG IV PRN ×2 (10:40→21:53)
[2022-08-06 12:56] LABS: Band Neutrophils % (manual) 14; Lymphocytes % (manual) 4 (10.0-50.0); Monocytes % (manual) 6 (0-12); Myelocytes % 1
[2022-08-06 14:29] VITALS: BP 155/84
[2022-08-06] MEDS: ATORVASTATIN 20 MG TAB PO SCH (21:52)
[2022-08-06] MEDS: AZITHROMYCIN 500MG/ 250ML 250 ML IV SCH (21:54)
[2022-08-06 22:00] VITALS: BP 165/76
[2022-08-07] MEDS: VANCOMYCIN 750mg/250ml 250 ML IV SCH ×3 (01:47→17:35)
[2022-08-07] MEDS: MEROPENEM 1GM IVPB 100 ML IV SCH ×3 (02:54→18:41)
[2022-08-07] MEDS: MORPHINE SULFATE INJ 2 MG/ml SYRG IV PRN ×3 (04:21→17:42)
[2022-08-07] MEDS: LORazepam 0.5 MG TAB PO PRN ×3 (04:22→21:25)
[2022-08-07 05:00] VITALS: BP 161/77
[2022-08-07] MEDS: SODIUM CHLOR 0.9% PF (SALINE LOCK) 10ML VIAL/SYR IV SCH ×3 (06:07→21:13)
[2022-08-07] MEDS: methylPREDNISolone SOD SUCC 125 MG/2 ML VL IV SCH ×3 (06:08→21:13)
[2022-08-07] MEDS: ACETYLCYSTEINE 20%(200MG/ML) SOL 4ML NEB SCH ×3 (06:52→21:42)
[2022-08-07] MEDS: IPRATROPIUM BROM 0.5 MG/2.5ML INH SOL NEB SCH ×5 (06:52→21:41)
[2022-08-07] MEDS: ALBUTEROL SULF 2.5 MG/0.5ML(0.5%) NEB SOLN NEB SCH ×5 (06:52→21:41)
[2022-08-07 07:22] LABS: Hematocrit 33.7 % (36.0-46.0); Hemoglobin 10.9 g/dL (12.2-16.2); Mean Corpuscular Hemoglobin 28.8 pg (28.0-32.0); Mean Corpuscular Hgb Conc. 32.5 g/dL (32.0-36.0); Mean Corpuscular Volume 88.8 fL (80.0-100.0); Red Blood Cells 3.79 10^6/uL (4.0-5.20); Red Cell Distribution Width 14.1 % (11.8-14.3); White Blood Cell 15.2 10^3/uL (4.4-10.8)
[2022-08-07 07:52] LABS: Band Neutrophils % (manual) 0; Basophils % (manual) 0 (0.0-2.0); Blast Cells 0; Eosinophils % (manual) 0 (0-7); Metamyelocytes % 0; Myelocytes % 0; Promyelocytes % 0; Reactive Lymphocytes 0
[2022-08-07 08:00] VITALS: BP 174/84
[2022-08-07 08:28] LABS: Albumin 2.5 g/dL (3.4-5.0); BUN/Creatinine Ratio 43.9; Bilirubin, Total 0.3 mg/dL (0.2-1.0); Calcium 8.7 mg/dL (8.5-10.1); Potassium 4.2 mmol/L (3.5-5.1); Total Protein 5.6 g/dL (6.4-8.2)
[2022-08-07] MEDS: dilTIAZem 120MG ER CAP PO SCH (08:54)
[2022-08-07] MEDS: MONTELUKAST SODIUM 10 MG TAB PO SCH (08:55)
[2022-08-07] MEDS: VENLAFAXINE HCL 37.5mg XR cap PO SCH (08:55)
[2022-08-07] MEDS: LOSARTAN POTASSIUM 50 MG TAB PO SCH (08:55)
[2022-08-07 09:00] VITALS: BP 174/84
[2022-08-07 09:27] LABS: Lymphocytes % (manual) 10 (10.0-50.0); Monocytes % (manual) 3 (0-12)
[2022-08-07] MEDS ORDERED: amLODIPine BESYLATE 5 MG TAB PO ONE (12:30)
[2022-08-07 13:00] VITALS: BP 169/79
[2022-08-07] MEDS: hydrALAZINE HCL 20 MG/ML VL IV PRN (15:13)
[2022-08-07 17:00] VITALS: BP 125/57
[2022-08-07] MEDS ORDERED: ALBUTEROL MEDNEB 2.5 mg/3ml NEB ONE ×4 (18:03→23:37)
[2022-08-07] MEDS: ALBUTEROL SULF 2.5 MG/0.5ML(0.5%) NEB SOLN NEB PRN ×2 (20:05→23:38)
[2022-08-07] MEDS: AZITHROMYCIN 500MG/ 250ML 250 ML IV SCH (21:17)
[2022-08-07] MEDS: ATORVASTATIN 20 MG TAB PO SCH (21:25)
[2022-08-07 22:00] VITALS: BP 171/70
[2022-08-08] VITALS (9 sets, daily range): BP systolic 112–174; BP diastolic 64–84
[2022-08-08] MEDS ORDERED: VANCOMYCIN 1GM/250ML 250 ML IV ONE (01:45)
[2022-08-08] MEDS ORDERED: ALBUTEROL MEDNEB 2.5 mg/3ml NEB ONE ×5 (01:55→22:01)
[2022-08-08] MEDS: IPRATROPIUM BROM 0.5 MG/2.5ML INH SOL NEB SCH ×6 (01:57→22:09)
[2022-08-08] MEDS: ALBUTEROL SULF 2.5 MG/0.5ML(0.5%) NEB SOLN NEB SCH ×6 (01:57→22:09)
[2022-08-08] MEDS: VANCOMYCIN 750mg/250ml 250 ML IV SCH ×4 (01:59→22:33)
[2022-08-08] MEDS: MEROPENEM 1GM IVPB 100 ML IV SCH ×2 (03:19→11:00)
[2022-08-08] MEDS: SODIUM CHLOR 0.9% PF (SALINE LOCK) 10ML VIAL/SYR IV SCH ×3 (05:31→21:48)
[2022-08-08] MEDS: methylPREDNISolone SOD SUCC 125 MG/2 ML VL IV SCH ×2 (05:32→21:48)
[2022-08-08] MEDS: LORazepam 0.5 MG TAB PO PRN ×3 (05:35→23:14)
[2022-08-08] MEDS: ACETYLCYSTEINE 20%(200MG/ML) SOL 4ML NEB SCH ×3 (05:41→18:51)
[2022-08-08 06:05] LABS: Hematocrit 35.1 % (36.0-46.0); Hemoglobin 11.3 g/dL (12.2-16.2); Mean Corpuscular Hemoglobin 28.4 pg (28.0-32.0); Mean Corpuscular Hgb Conc. 32.2 g/dL (32.0-36.0); Mean Corpuscular Volume 88.3 fL (80.0-100.0); Red Blood Cells 3.98 10^6/uL (4.0-5.20); Red Cell Distribution Width 14.2 % (11.8-14.3); White Blood Cell 18.9 10^3/uL (4.4-10.8)
[2022-08-08 06:20] LABS: Basophils % (manual) 0 (0.0-2.0); Blast Cells 0; Eosinophils % (manual) 0 (0-7); Reactive Lymphocytes 0
[2022-08-08 06:28] LABS: Potassium 4.5 mmol/L (3.5-5.1)
[2022-08-08 06:33] LABS: Albumin 2.5 g/dL (3.4-5.0); BUN/Creatinine Ratio 38.5
[2022-08-08 06:36] LABS: Bilirubin, Total 0.3 mg/dL (0.2-1.0); Total Protein 5.7 g/dL (6.4-8.2)
[2022-08-08 07:40] LABS: Band Neutrophils % (manual) 9; Lymphocytes % (manual) 8 (10.0-50.0); Metamyelocytes % 1; Monocytes % (manual) 2 (0-12); Myelocytes % 2; Promyelocytes % 1
[2022-08-08] MEDS: MONTELUKAST SODIUM 10 MG TAB PO SCH (08:43)
[2022-08-08] MEDS: VENLAFAXINE HCL 37.5mg XR cap PO SCH (08:43)
[2022-08-08] MEDS: dilTIAZem 120MG ER CAP PO SCH (08:43)
[2022-08-08] MEDS: LOSARTAN POTASSIUM 50 MG TAB PO SCH (08:44)
[2022-08-08] MEDS ORDERED: levoFLOXacin 500 MG TAB PO ONE (10:00)
[2022-08-08] MEDS: MORPHINE SULFATE INJ 2 MG/ml SYRG IV PRN ×2 (11:20→18:04)
[2022-08-08] MEDS: ATORVASTATIN 20 MG TAB PO SCH (21:47)
[2022-08-09 05:00] VITALS: BP 167/92
[2022-08-09 05:46] LABS: Hematocrit 34.4 % (36.0-46.0); Hemoglobin 11.3 g/dL (12.2-16.2); Mean Corpuscular Hemoglobin 29.1 pg (28.0-32.0); Mean Corpuscular Hgb Conc. 32.9 g/dL (32.0-36.0); Mean Corpuscular Volume 88.2 fL (80.0-100.0); Red Blood Cells 3.89 10^6/uL (4.0-5.20); Red Cell Distribution Width 14.5 % (11.8-14.3); White Blood Cell 16.5 10^3/uL (4.4-10.8)
[2022-08-09 05:52] LABS: Basophils % (manual) 0 (0.0-2.0); Eosinophils % (manual) 0 (0-7); Metamyelocytes % 0
[2022-08-09 05:53] LABS: Blast Cells 0; Promyelocytes % 0; Reactive Lymphocytes 0
[2022-08-09 06:03] LABS: Potassium 4.7 mmol/L (3.5-5.1)
[2022-08-09 06:11] LABS: Albumin 2.5 g/dL (3.4-5.0); BUN/Creatinine Ratio 37.5; Bilirubin, Total 0.2 mg/dL (0.2-1.0); Calcium 8.7 mg/dL (8.5-10.1); Total Protein 5.9 g/dL (6.4-8.2)
[2022-08-09] MEDS ORDERED: ALBUTEROL MEDNEB 2.5 mg/3ml NEB ONE (06:18)
[2022-08-09] MEDS: SODIUM CHLOR 0.9% PF (SALINE LOCK) 10ML VIAL/SYR IV SCH ×3 (06:50→22:29)
[2022-08-09] MEDS: IPRATROPIUM BROM 0.5 MG/2.5ML INH SOL NEB SCH ×5 (06:56→20:51)
[2022-08-09] MEDS: ALBUTEROL SULF 2.5 MG/0.5ML(0.5%) NEB SOLN NEB SCH ×5 (06:56→20:51)
[2022-08-09] MEDS: ACETYLCYSTEINE 20%(200MG/ML) SOL 4ML NEB SCH ×3 (06:57→20:51)
[2022-08-09 07:43] VITALS: BP 174/83
[2022-08-09] MEDS: hydrALAZINE HCL 20 MG/ML VL IV PRN (08:24)
[2022-08-09 08:44] LABS: Band Neutrophils % (manual) 17; Lymphocytes % (manual) 6 (10.0-50.0); Monocytes % (manual) 3 (0-12); Myelocytes % 2
[2022-08-09] MEDS: LORazepam 0.5 MG TAB PO PRN ×2 (09:23→19:38)
[2022-08-09] MEDS: dilTIAZem 120MG ER CAP PO SCH (09:26)
[2022-08-09] MEDS: LOSARTAN POTASSIUM 50 MG TAB PO SCH (09:27)
[2022-08-09] MEDS: VENLAFAXINE HCL 37.5mg XR cap PO SCH (09:27)
[2022-08-09] MEDS: MONTELUKAST SODIUM 10 MG TAB PO SCH (09:27)
[2022-08-09] MEDS: methylPREDNISolone SOD SUCC 125 MG/2 ML VL IV SCH ×2 (09:30→22:29)
[2022-08-09] MEDS ORDERED: levoFLOXacin 500 MG TAB PO ONE (10:00)
[2022-08-09] MEDS ORDERED: dilTIAZem 120MG ER CAP PO ONE (11:15)
[2022-08-09] MEDS: VANCOMYCIN 750mg/250ml 250 ML IV SCH ×2 (11:26→22:29)
[2022-08-09 11:59] VITALS: BP 149/73
[2022-08-09 16:54] VITALS: BP 146/69
[2022-08-09] MEDS: ATORVASTATIN 20 MG TAB PO SCH (22:29)
[2022-08-09] MEDS ORDERED: VANCOMYCIN 750mg/250ml 250 ML IV SCH ×2 (22:30)
[2022-08-10] MEDS: LORazepam 0.5 MG TAB PO PRN ×4 (04:19→21:56)
[2022-08-10 05:00] VITALS: BP 159/59
[2022-08-10] MEDS: SODIUM CHLOR 0.9% PF (SALINE LOCK) 10ML VIAL/SYR IV SCH ×2 (06:21→17:26)
[2022-08-10] MEDS: ALBUTEROL SULF 2.5 MG/0.5ML(0.5%) NEB SOLN NEB SCH ×5 (07:00→23:01)
[2022-08-10] MEDS: ACETYLCYSTEINE 20%(200MG/ML) SOL 4ML NEB SCH ×4 (07:00→22:00)
[2022-08-10] MEDS: IPRATROPIUM BROM 0.5 MG/2.5ML INH SOL NEB SCH ×5 (07:00→23:02)
[2022-08-10 07:54] LABS: Hematocrit 36.8 % (36.0-46.0); Hemoglobin 11.7 g/dL (12.2-16.2); Mean Corpuscular Hemoglobin 28.4 pg (28.0-32.0); Mean Corpuscular Hgb Conc. 31.9 g/dL (32.0-36.0); Mean Corpuscular Volume 89.1 fL (80.0-100.0); Red Blood Cells 4.13 10^6/uL (4.0-5.20); Red Cell Distribution Width 14.5 % (11.8-14.3); White Blood Cell 17.1 10^3/uL (4.4-10.8)
[2022-08-10 08:07] LABS: Potassium 4.6 mmol/L (3.5-5.1)
[2022-08-10 08:21] LABS: Albumin 2.5 g/dL (3.4-5.0); BUN/Creatinine Ratio 54.8; Bilirubin, Total 0.5 mg/dL (0.2-1.0); Calcium 8.7 mg/dL (8.5-10.1); Total Protein 5.8 g/dL (6.4-8.2)
[2022-08-10] MEDS ORDERED: VANCOMYCIN 750mg/250ml 250 ML IV SCH (08:30)
[2022-08-10 08:42] LABS: Band Neutrophils % (manual) 0; Basophils % (manual) 0 (0.0-2.0); Blast Cells 0; Eosinophils % (manual) 0 (0-7); Metamyelocytes % 0; Myelocytes % 0; Promyelocytes % 0; Reactive Lymphocytes 0
[2022-08-10 09:00] VITALS: BP 130/73
[2022-08-10] MEDS: MONTELUKAST SODIUM 10 MG TAB PO SCH (09:38)
[2022-08-10] MEDS: dilTIAZem 120MG ER CAP PO SCH (09:38)
[2022-08-10] MEDS: VENLAFAXINE HCL 37.5mg XR cap PO SCH (09:39)
[2022-08-10] MEDS: methylPREDNISolone SOD SUCC 125 MG/2 ML VL IV SCH (09:40)
[2022-08-10] MEDS ORDERED: levoFLOXacin 250 MG TAB PO SCH (10:00)
[2022-08-10 11:46] VITALS: BP 171/76
[2022-08-10 13:17] LABS: Lymphocytes % (manual) 5 (10.0-50.0); Monocytes % (manual) 1 (0-12)
[2022-08-10] MEDS: LOSARTAN POTASSIUM 50 MG TAB PO SCH (14:12)
[2022-08-10 16:54] VITALS: BP_SYST 162; BP_SYST 190; BP_DIAS 63; BP_DIAS 80
[2022-08-10] MEDS: ENALAPRILAT 1.25 MG/ML-1ML VIAL IV PRN (17:23)
[2022-08-10] MEDS: VANCOMYCIN 750mg/250ml 250 ML IV SCH (18:27)
[2022-08-10] MEDS: ATORVASTATIN 20 MG TAB PO SCH (21:53)
[2022-08-10 22:00] VITALS: BP 156/72
[2022-08-11 05:00] VITALS: BP 173/83
[2022-08-11] MEDS: ENALAPRILAT 1.25 MG/ML-1ML VIAL IV PRN ×2 (05:59→21:06)
[2022-08-11] MEDS: ACETYLCYSTEINE 20%(200MG/ML) SOL 4ML NEB SCH ×3 (06:00→22:00)
[2022-08-11] MEDS: ALBUTEROL SULF 2.5 MG/0.5ML(0.5%) NEB SOLN NEB SCH ×5 (06:13→22:30)
[2022-08-11] MEDS: IPRATROPIUM BROM 0.5 MG/2.5ML INH SOL NEB SCH ×5 (06:13→22:30)
[2022-08-11 06:30] LABS: Albumin 2.5 g/dL (3.4-5.0); BUN/Creatinine Ratio 61.1; Calcium 8.7 mg/dL (8.5-10.1); Potassium 4.3 mmol/L (3.5-5.1)
[2022-08-11 06:33] LABS: Bilirubin, Total 0.4 mg/dL (0.2-1.0); Total Protein 5.4 g/dL (6.4-8.2)
[2022-08-11] MEDS: LORazepam 0.5 MG TAB PO PRN ×3 (06:38→20:12)
[2022-08-11] MEDS: SODIUM CHLOR 0.9% PF (SALINE LOCK) 10ML VIAL/SYR IV SCH ×4 (06:39→21:07)
[2022-08-11 06:46] LABS: Basophils # (auto) 0 10 ^3/uL (0-0.2); Basophils % (auto) 0.2 % (0.0-2.0); Eosinophils # (auto) 0 10 ^3/uL (0-0.8); Hematocrit 34.5 % (36.0-46.0); Hemoglobin 11.1 g/dL (12.2-16.2); Lymphocytes # (auto) 1.1 10 ^3/uL (0.4-5.4); Lymphocytes % (auto) 5.1 % (10.0-50.0); Mean Corpuscular Hemoglobin 28.4 pg (28.0-32.0); Mean Corpuscular Hgb Conc. 32.3 g/dL (32.0-36.0); Mean Corpuscular Volume 87.8 fL (80.0-100.0); Monocytes # (auto) 0.9 10 ^3/uL (0-1.3); Monocytes % (auto) 4.3 % (0.0-12.0); Neutrophils # (auto) 19.4 10 ^3/uL (1.6-8.6); Neutrophils % (auto) 90.4 % (37.0-80.0); Red Blood Cells 3.92 10^6/uL (4.0-5.20); Red Cell Distribution Width 14.5 % (11.8-14.3); White Blood Cell 21.5 10^3/uL (4.4-10.8)
[2022-08-11] MEDS: VANCOMYCIN 750mg/250ml 250 ML IV SCH (06:56)
[2022-08-11] MEDS: MORPHINE SULFATE INJ 2 MG/ml SYRG IV PRN (08:01)
[2022-08-11 09:00] VITALS: BP 161/68
[2022-08-11] MEDS ORDERED: predniSONE 20 MG TAB PO SCH (10:00)
[2022-08-11] MEDS ORDERED: levoFLOXacin 500 MG TAB PO ONE (10:30)
[2022-08-11] MEDS ORDERED: FLUCONAZOLE 100 MG TAB PO ONE (10:45)
[2022-08-11] MEDS ORDERED: predniSONE 20 MG TAB PO ONE (11:15)
[2022-08-11] MEDS: LOSARTAN POTASSIUM 50 MG TAB PO SCH (11:41)
[2022-08-11] MEDS: MONTELUKAST SODIUM 10 MG TAB PO SCH (11:42)
[2022-08-11] MEDS: dilTIAZem 120MG ER CAP PO SCH (11:43)
[2022-08-11] MEDS: VENLAFAXINE HCL 37.5mg XR cap PO SCH (11:49)
[2022-08-11 11:52] VITALS: BP 147/72
[2022-08-11 13:00] VITALS: BP 154/64
[2022-08-11 13:31] LABS: Urine Amorphous Crystal FEW /hpf (None Seen); Urine Bacteria MANY /hpf (None Seen); Urine Blood 3+ /uL (Negative); Urine Mucus FEW (None Seen); Urine Specific Gravity 1.009 (1.001-1.035); Urine WBC 31 /hpf (0 - 5)
[2022-08-11] MEDS ORDERED: VANCOMYCIN 750mg/250ml 250 ML IV SCH (16:00)
[2022-08-11] MEDS ORDERED: cefTRIAXone 1GM/50ML D5W 50 ML IV ONE (16:00)
[2022-08-11 16:40] VITALS: BP 157/76
[2022-08-11] MEDS: DOXYCYCLINE 100 MG TAB/CAP PO SCH (20:12)
[2022-08-11] MEDS: ATORVASTATIN 20 MG TAB PO SCH (20:12)
[2022-08-11 22:00] VITALS: BP 173/82
[2022-08-12] MEDS: ALBUTEROL SULF 2.5 MG/0.5ML(0.5%) NEB SOLN NEB PRN (04:30)
[2022-08-12 05:00] VITALS: BP_SYST 0; BP_SYST 174; BP_DIAS 88
[2022-08-12] MEDS: SODIUM CHLOR 0.9% PF (SALINE LOCK) 10ML VIAL/SYR IV SCH ×3 (05:47→21:09)
[2022-08-12] MEDS: IPRATROPIUM BROM 0.5 MG/2.5ML INH SOL NEB SCH ×5 (06:45→22:20)
[2022-08-12] MEDS: ACETYLCYSTEINE 20%(200MG/ML) SOL 4ML NEB SCH (06:45)
[2022-08-12] MEDS: ALBUTEROL SULF 2.5 MG/0.5ML(0.5%) NEB SOLN NEB SCH ×5 (06:45→22:20)
[2022-08-12 06:57] LABS: Hematocrit 36.4 % (36.0-46.0); Mean Corpuscular Volume 87.8 fL (80.0-100.0); Red Blood Cells 4.14 10^6/uL (4.0-5.20); Red Cell Distribution Width 14.5 % (11.8-14.3); White Blood Cell 13.4 10^3/uL (4.4-10.8)
[2022-08-12 07:04] LABS: Basophils % (manual) 0 (0.0-2.0); Blast Cells 0; Eosinophils % (manual) 0 (0-7); Metamyelocytes % 0; Promyelocytes % 0; Reactive Lymphocytes 0
[2022-08-12 07:42] LABS: Band Neutrophils % (manual) 3; Lymphocytes % (manual) 36 (10.0-50.0); Monocytes % (manual) 2 (0-12); Myelocytes % 1
[2022-08-12 09:00] VITALS: BP_SYST 0; BP_SYST 128; BP_DIAS 46
[2022-08-12] MEDS: cefTRIAXone 1GM/50ML D5W 50 ML IV SCH (09:27)
[2022-08-12] MEDS: LORazepam 0.5 MG TAB PO PRN ×3 (09:27→21:37)
[2022-08-12] MEDS: VENLAFAXINE HCL 37.5mg XR cap PO SCH (09:29)
[2022-08-12] MEDS: LOSARTAN POTASSIUM 50 MG TAB PO SCH (09:30)
[2022-08-12] MEDS: dilTIAZem 120MG ER CAP PO SCH (09:31)
[2022-08-12] MEDS: MONTELUKAST SODIUM 10 MG TAB PO SCH (09:31)
[2022-08-12] MEDS: DOXYCYCLINE 100 MG TAB/CAP PO SCH ×2 (09:31→21:27)
[2022-08-12] MEDS: predniSONE 20 MG TAB PO SCH (09:32)
[2022-08-12] MEDS ORDERED: levoFLOXacin 500 MG TAB PO SCH (10:00)
[2022-08-12 13:00] VITALS: BP 150/40
[2022-08-12 17:00] VITALS: BP 135/65
[2022-08-12 19:12] LABS: Free T4 (Free Thyroxine) 1.22 ng/dL (0.89-1.76)
[2022-08-12 19:14] LABS: T3 Total 0.54 ng/mL (0.60-1.81)
[2022-08-12] MEDS: ATORVASTATIN 20 MG TAB PO SCH (21:28)
[2022-08-12 22:00] VITALS: BP 135/85
[2022-08-13 05:00] VITALS: BP_SYST 0; BP_SYST 149; BP_DIAS 76
[2022-08-13] MEDS: SODIUM CHLOR 0.9% PF (SALINE LOCK) 10ML VIAL/SYR IV SCH ×3 (06:00→22:09)
[2022-08-13] MEDS: ALBUTEROL SULF 2.5 MG/0.5ML(0.5%) NEB SOLN NEB SCH ×4 (06:28→20:09)
[2022-08-13] MEDS: IPRATROPIUM BROM 0.5 MG/2.5ML INH SOL NEB SCH ×4 (06:28→20:09)
[2022-08-13 09:00] VITALS: BP_SYST 0; BP_SYST 126; BP_DIAS 65
[2022-08-13] MEDS: cefTRIAXone 1GM/50ML D5W 50 ML IV SCH (09:06)
[2022-08-13] MEDS: DOXYCYCLINE 100 MG TAB/CAP PO SCH ×2 (09:07→22:08)
[2022-08-13] MEDS: MONTELUKAST SODIUM 10 MG TAB PO SCH (09:07)
[2022-08-13] MEDS: dilTIAZem 120MG ER CAP PO SCH (09:08)
[2022-08-13] MEDS: LOSARTAN POTASSIUM 50 MG TAB PO SCH (09:09)
[2022-08-13] MEDS: VENLAFAXINE HCL 37.5mg XR cap PO SCH (09:09)
[2022-08-13 13:00] VITALS: BP 109/53
[2022-08-13] MEDS: ALPRAZolam 0.5 MG TAB PO SCH ×2 (13:33→22:08)
[2022-08-13] MEDS: predniSONE 20 MG TAB PO SCH (13:35)
[2022-08-13 17:00] VITALS: BP 97/45
[2022-08-13 22:00] VITALS: BP 115/57
[2022-08-13] MEDS: ATORVASTATIN 20 MG TAB PO SCH (22:08)
[2022-08-14] VITALS (8 sets, daily range): BP systolic 104–126; BP diastolic 49–62
[2022-08-14] MEDS: ALBUTEROL SULF 2.5 MG/0.5ML(0.5%) NEB SOLN NEB SCH ×6 (00:05→22:22)
[2022-08-14] MEDS: IPRATROPIUM BROM 0.5 MG/2.5ML INH SOL NEB SCH ×6 (00:05→22:22)
[2022-08-14] MEDS: ALPRAZolam 0.5 MG TAB PO SCH ×3 (06:37→21:22)
[2022-08-14] MEDS: SODIUM CHLOR 0.9% PF (SALINE LOCK) 10ML VIAL/SYR IV SCH ×3 (06:42→21:27)
[2022-08-14] MEDS: cefTRIAXone 1GM/50ML D5W 50 ML IV SCH (10:52)
[2022-08-14] MEDS: ENOXAPARIN SOD 30 MG/0.3 ML SYRINGE SC SCH (10:53)
[2022-08-14] MEDS: DOXYCYCLINE 100 MG TAB/CAP PO SCH ×2 (10:54→21:22)
[2022-08-14] MEDS: MONTELUKAST SODIUM 10 MG TAB PO SCH (10:54)
[2022-08-14] MEDS: PANTOPRAZOLE 40 MG/10 ML VIAL INJ IV SCH (10:54)
[2022-08-14] MEDS: VENLAFAXINE HCL 37.5mg XR cap PO SCH (10:55)
[2022-08-14] MEDS: dilTIAZem 120MG ER CAP PO SCH (10:55)
[2022-08-14] MEDS: LOSARTAN POTASSIUM 50 MG TAB PO SCH (10:56)
[2022-08-14] MEDS: predniSONE 20 MG TAB PO SCH (10:57)
[2022-08-14] MEDS: ACETAMINOPHEN 325 MG TAB PO PRN (20:37)
[2022-08-14] MEDS: ATORVASTATIN 20 MG TAB PO SCH (21:22)
[2022-08-15 05:00] VITALS: BP 119/65
[2022-08-15] MEDS: SODIUM CHLOR 0.9% PF (SALINE LOCK) 10ML VIAL/SYR IV SCH ×2 (05:20→14:09)
[2022-08-15] MEDS: ALPRAZolam 0.5 MG TAB PO SCH ×2 (05:20→14:18)
[2022-08-15] MEDS: ALBUTEROL SULF 2.5 MG/0.5ML(0.5%) NEB SOLN NEB SCH ×4 (06:34→17:57)
[2022-08-15] MEDS: IPRATROPIUM BROM 0.5 MG/2.5ML INH SOL NEB SCH ×4 (06:34→17:57)
[2022-08-15] MEDS: cefTRIAXone 1GM/50ML D5W 50 ML IV SCH (08:24)
[2022-08-15 09:00] VITALS: BP 115/46
[2022-08-15] MEDS: dilTIAZem 120MG ER CAP PO SCH (09:59)
[2022-08-15] MEDS: predniSONE 20 MG TAB PO SCH (09:59)
[2022-08-15] MEDS: PANTOPRAZOLE 40 MG/10 ML VIAL INJ IV SCH (09:59)
[2022-08-15] MEDS: ENOXAPARIN SOD 30 MG/0.3 ML SYRINGE SC SCH (10:00)
[2022-08-15] MEDS: MONTELUKAST SODIUM 10 MG TAB PO SCH (10:00)
[2022-08-15] MEDS: LOSARTAN POTASSIUM 50 MG TAB PO SCH (10:00)
[2022-08-15] MEDS: VENLAFAXINE HCL 37.5mg XR cap PO SCH (10:00)
[2022-08-15] MEDS: DOXYCYCLINE 100 MG TAB/CAP PO SCH (10:00)
[2022-08-15] MEDS ORDERED: PANT40TA2 PO ×2 (10:10)
[2022-08-15] MEDS ORDERED: DOX100T PO ×2 (10:10)
[2022-08-15] MEDS ORDERED: METH4PAK PO ×2 (10:10)
[2022-08-15 11:55] VITALS: BP 115/46
[2022-08-15 13:00] VITALS: BP_SYST 103; BP_SYST 104; BP_DIAS 57; BP_DIAS 58
[2022-08-15 17:00] VITALS: BP 118/58
== END 2022-08-15 18:00 | disposition home or self-care (01) | DRG 871 ==
LOC: CENTRAL 21:04 → TELE-CENTR 08-04 22:52
PROVIDERS: ADMIT Nurse Practitioner Family; ATTEND Internal Medicine
PROC: 05HA33Z Insertion of Infusion Device into Left Brachial Vein, Percutaneous Approach (ICD-10-PCS; principal; 2022-08-05)
PROC: B54NZZA Ultrasonography of Left Upper Extremity Veins, Guidance (ICD-10-PCS; 2022-08-05)
DX: A41.01 Sepsis due to Methicillin susceptible Staphylococcus aureus (principal); J10.08 Influenza due to other identified influenza virus with other specified pneumonia; J15.211 Pneumonia due to Methicillin susceptible Staphylococcus aureus; J96.22 Acute and chronic respiratory failure with hypercapnia; J96.21 Acute and chronic respiratory failure with hypoxia; K86.1 Other chronic pancreatitis; N39.0 Urinary tract infection, site not specified; E44.0 Moderate protein-calorie malnutrition; E78.5 Hyperlipidemia, unspecified; F17.210 Nicotine dependence, cigarettes, uncomplicated; F32.A Depression, unspecified; D64.9 Anemia, unspecified; F41.9 Anxiety disorder, unspecified; I10 Essential (primary) hypertension; I25.10 Atherosclerotic heart disease of native coronary artery without angina pectoris; J43.9 Emphysema, unspecified; Z20.822 Contact with and (suspected) exposure to COVID-19; Z79.899 Other long term (current) drug therapy; Z82.49 Family history of ischemic heart disease and other diseases of the circulatory system; Z99.81 Dependence on supplemental oxygen; Z68.27 Body mass index [BMI] 27.0-27.9, adult; Z71.6 Tobacco abuse counseling
CPT/HCPCS: 36415; 36600; 71045; 71250; 80048; 80053; 80202; 81001; 82306; 82565; 82805; 83605; 83880; 84439; 84443; 84480; 84484; 85007; 85025; 85027; 85379; 85610; 87040; 87070; 87077; 87081; 87186; 87205; 87426; 87804; 93005; 94640; 97116; 97163; 97530; C9113; G0378; J0696; J2185

== ENCOUNTER → 2022-08-18 | Outpatient (CLI) | payer BC ==
[~2022-08-18] MED LIST changes: +ALPR1TAB2 PO; +ASCO500T11 PO; +DILT120C12 PO; +DIP25C PO; +DOX100T PO; +METH4PAK PO; +PRED10TA PO; +SIMV-8 PO; +VENL150C58 PO
[2022-08-18 07:57] LABS: Basophils # (auto) 0 10 ^3/uL (0-0.2); Basophils % (auto) 0.2 % (0.0-2.0); Eosinophils # (auto) 0 10 ^3/uL (0-0.8); Eosinophils % (auto) 0.3 % (0.0-7.0); Hematocrit 33.5 % (36.0-46.0); Hemoglobin 11.1 g/dL (12.2-16.2); Lymphocytes # (auto) 0.7 10 ^3/uL (0.4-5.4); Lymphocytes % (auto) 6.4 % (10.0-50.0); Mean Corpuscular Hemoglobin 29.5 pg (28.0-32.0); Mean Corpuscular Hgb Conc. 33.1 g/dL (32.0-36.0); Mean Corpuscular Volume 89.1 fL (80.0-100.0); Monocytes # (auto) 0.8 10 ^3/uL (0-1.3); Monocytes % (auto) 6.9 % (0.0-12.0); Neutrophils # (auto) 9.6 10 ^3/uL (1.6-8.6); Neutrophils % (auto) 86.2 % (37.0-80.0); Nucleated Red Blood Cells % 0.1 %; Red Blood Cells 3.76 10^6/uL (4.0-5.20); Red Cell Distribution Width 14.5 % (11.8-14.3); White Blood Cell 11.2 10^3/uL (4.4-10.8)
[2022-08-18 08:31] LABS: Albumin 3.1 g/dL (3.4-5.0); Calcium 9.7 mg/dL (8.5-10.1)
[2022-08-18 08:37] LABS: BUN/Creatinine Ratio 18.6; Bilirubin, Total 0.7 mg/dL (0.2-1.0); Total Protein 6.3 g/dL (6.4-8.2)
== END | disposition home or self-care (01) ==
LOC: LAB 07:38
PROVIDERS: ATTEND Nurse Practitioner Family
DX: I10 Essential (primary) hypertension (principal); E78.5 Hyperlipidemia, unspecified; E05.00 Thyrotoxicosis with diffuse goiter without thyrotoxic crisis or storm
CPT/HCPCS: 36415; 80053; 80061; 84439; 84443; 85025

== ENCOUNTER → 2022-11-09 | Outpatient (CLI) | payer BC, OTHER ==
[~2022-11-09] MED LIST changes: -BENZ200C64 PO; -LINE1TAB6 PO; -LORA0.5T20 PO; -PREDNISONE 5 MG TABLET PO; -SACC250C PO
== END | disposition home or self-care (01) ==
LOC: US 09:34
PROVIDERS: ATTEND Nurse Practitioner Family
DX: E05.10 Thyrotoxicosis with toxic single thyroid nodule without thyrotoxic crisis or storm (principal)
CPT/HCPCS: 10005; 76536; 76942; 88172

== ENCOUNTER → 2023-01-02 | Outpatient (CLI) | payer BC ==
[2023-01-02 15:11] LABS: Albumin 3.7 g/dL (3.4-5.0); Calcium 9.2 mg/dL (8.5-10.1); Potassium 4.8 mmol/L (3.5-5.1)
[2023-01-02 15:15] LABS: BUN/Creatinine Ratio 13.4 (10.0-20.0); Bilirubin, Total 0.3 mg/dL (0.2-1.0); Total Protein 7.1 g/dL (6.4-8.2)
[2023-01-02 16:51] LABS: Free T4 (Free Thyroxine) 0.79 ng/dL (0.89-1.76)
[2023-01-02 16:52] LABS: Free T3 2.5 pg/mL (2.3-4.2); T3 Total 0.97 ng/mL (0.60-1.81)
== END | disposition home or self-care (01) ==
LOC: LAB 14:02
PROVIDERS: ATTEND Internal Medicine Endocrinology, Diabetes & Metabolism
DX: E03.9 Hypothyroidism, unspecified (principal); E05.90 Thyrotoxicosis, unspecified without thyrotoxic crisis or storm
CPT/HCPCS: 36415; 80053; 84439; 84443; 84445; 84480; 84481

== ENCOUNTER → 2023-07-03 | Outpatient (CLI) | payer BC ==
[~2023-07-03] MED LIST changes: -DIP25C PO; +DIPH25CA51 PO; -ESCI-34 PO; +ESCI1TAB37 PO; +FLUC200T PO; -FLUC200T35 PO; -LOSA-69 PO; +LOSA50TA46 PO; -SIMV-8 PO; +SIMV20TA20 PO
[2023-07-03 16:03] LABS: Alanine Aminotransferase 26 U/L (7-40); Albumin 4.6 g/dL (3.2-4.8); Alkaline Phosphatase 19 U/L (46-116); Anion Gap 4 (5-15); Aspartate Aminotransferase 25 U/L (13-40); BUN/Creatinine Ratio 11.3 (10.0-20.0); Blood Urea Nitrogen 9 mg/dL (9-23); Calcium 9.8 mg/dL (8.5-10.1); Carbon Dioxide 35 mmol/L (20-30); Chloride 104 mmol/L (98-107); Glucose 111 mg/dL (74-106); Sodium 143 mmol/L (136-145)
[2023-07-03 16:04] LABS: Bilirubin, Total 0.4 mg/dL (0.2-1.0); Total Protein 6.9 g/dL (5.7-8.2)
== END | disposition home or self-care (01) ==
LOC: LAB 14:15
PROVIDERS: ATTEND Nurse Practitioner Family
DX: E05.90 Thyrotoxicosis, unspecified without thyrotoxic crisis or storm (principal)
CPT/HCPCS: 36415; 80053; 84439; 84443

== ENCOUNTER → 2024-06-20 | Outpatient (CLI) | payer BC ==
[~2024-06-20] MED LIST changes: +LOSA-534 PO; -LOSA50TA46 PO
== END | disposition home or self-care (01) ==
LOC: LAB 12:42
PROVIDERS: ATTEND Dermatology
DX: D48.5 Neoplasm of uncertain behavior of skin (principal)

== ENCOUNTER → 2024-07-18 | Outpatient (CLI) | payer BC | END | disposition home or self-care (01) | LOC: LAB 11:28 | PROVIDERS: ATTEND Dermatology | DX: D48.5 Neoplasm of uncertain behavior of skin (principal) ==

== ENCOUNTER → 2025-01-01 | Outpatient (CLI) | payer BC ==
[2025-01-01 12:21] LABS: Basophils # (auto) 0.1 10 ^3/uL (0-0.2); Basophils % (auto) 0.7 % (0.0-2.0); Eosinophils # (auto) 0.1 10 ^3/uL (0-0.8); Eosinophils % (auto) 0.5 % (0.0-7.0); Hematocrit 33.9 % (36.0-46.0); Hemoglobin 11.4 g/dL (12.2-16.2); Lymphocytes % (auto) 20.7 % (10.0-50.0); Mean Corpuscular Hemoglobin 31.5 pg (28.0-32.0); Mean Corpuscular Hgb Conc. 33.7 g/dL (32.0-36.0); Mean Corpuscular Volume 93.5 fL (80.0-100.0); Monocytes # (auto) 0.9 10 ^3/uL (0-1.3); Monocytes % (auto) 6.1 % (0.0-12.0); Neutrophils # (auto) 10.4 10 ^3/uL (1.6-8.6); Platelet Count (auto) 321 10^3/uL (140-450); Red Blood Cells 3.63 10^6/uL (4.0-5.20); Red Cell Distribution Width 15.9 % (11.8-14.3); White Blood Cell 14.4 10^3/uL (4.4-10.8)
[2025-01-01 12:59] LABS: Alanine Aminotransferase 15 U/L (7-40); Albumin 4.5 g/dL (3.2-4.8); Anion Gap 7 (5-15); Aspartate Aminotransferase 21 U/L (13-40); BUN/Creatinine Ratio 14.2 (10.0-20.0); Bilirubin, Total 0.4 mg/dL (0.2-1.0); Blood Urea Nitrogen 15 mg/dL (9-23); Calcium 10.1 mg/dL (8.7-10.4); Chloride 102 mmol/L (98-107); Glucose 93 mg/dL (74-106); Potassium 4.3 mmol/L (3.5-5.1); Sodium 140 mmol/L (136-145); Total Protein 7.1 g/dL (5.7-8.2)
[2025-01-01 13:00] LABS: Alkaline Phosphatase 20 U/L (46-116); Carbon Dioxide 31 mmol/L (20-31); Cholesterol 274 mg/dL (< 200); HDL Cholesterol 86 mg/dL (40-59); LDL Cholesterol 143 mg/dL (< 100); Triglycerides 192 mg/dL (< 150)
== END | disposition home or self-care (01) ==
LOC: LAB 11:52
PROVIDERS: ATTEND Nurse Practitioner Family
DX: I10 Essential (primary) hypertension (principal); E05.90 Thyrotoxicosis, unspecified without thyrotoxic crisis or storm; D64.9 Anemia, unspecified; Z00.01 Encounter for general adult medical examination with abnormal findings
CPT/HCPCS: 36415; 80053; 80061; 84443; 85025

== ENCOUNTER → 2025-03-21 | Outpatient (CLI) | payer BC | END | disposition home or self-care (01) | LOC: LAB 08:48 | PROVIDERS: ATTEND Family Medicine | DX: D48.5 Neoplasm of uncertain behavior of skin (principal) ==

== ENCOUNTER → 2025-03-28 | Outpatient (CLI) | payer BC | END | disposition home or self-care (01) | LOC: LAB 11:44 | PROVIDERS: ATTEND Family Medicine | DX: D48.5 Neoplasm of uncertain behavior of skin (principal) ==

== ENCOUNTER → 2025-04-04 | Outpatient (CLI) | payer BC | END | disposition home or self-care (01) | LOC: LAB 10:13 | PROVIDERS: ATTEND Family Medicine | DX: Z01.812 Encounter for preprocedural laboratory examination (principal); D48.3 Neoplasm of uncertain behavior of retroperitoneum ==